=== PATIENT | female | born 1940 | race Caucasian/White ===

== ENCOUNTER 2016-07-20 05:49 | Emergency (ER) | payer MEDICARE, BC ==
--- NOTE | 2016-07-20 06:04 | EDM.PDOC ---
ED HPI GENERAL MEDICAL PROBLEM - General Chief Complaint: Abdominal Pain Stated Complaint: AMBULANCE Time Seen by Provider: 07/20/16 05:52 - History of Present Illness INITIAL COMMENTS - FREE TEXT/NARRATIVE: HISTORY AND PHYSICAL: History of present illness: The patient is a 75-year-old female who arrives EMS with her with a history of hypertension A. fib/A. flutter UTIs hypercholesterolemia parkinsonism and Lewy body dementia and her her she complained yesterday of some lower back pain which this morning and all day yesterday she is complaining of lower, pain and increased frequency of urination. The states she has not had any falls recently and has been up and ambulatory and the pain she complained of in her back initially was lower not flank pain. Now she complains to me just of lower abdominal discomfort. The is not a very good historian and the patient has dementia so the history is very limited. She's not had fevers cough or shortness of breath at home. She's not had vomiting. Review of systems: As per history of present illness and below otherwise all systems reviewed and negative. Past medical history: As per history of present illness and as reviewed below otherwise noncontributory. Surgical history: As per history of present illness and as reviewed below otherwise noncontributory. Social history: No reported history of drug or alcohol abuse. Family history: As per history of present illness and as reviewed below otherwise noncontributory. Physical exam: General: Well-developed well-nourished female referred to keep her eyes closed in the ED and exhibits poor effort on my exam. She seems uncomfortable with movements HEENT: Atraumatic, normocephalic, pupils reactive, negative for conjunctival pallor or scleral icterus, mucous membranes tacky, throat clear, neck supple, nontender, trachea midline. Lungs: Clear to auscultation but very poor effort diminished breath sounds at the bases, breath sounds equal bilaterally, chest nontender. Heart: S1S2, regular rate but irregular rhythm, negative for clicks, rubs, or JVD. Abdomen: Soft, nondistended, bowel sounds are hypoactive. There is mild tenderness used to in the abdomen but more in the lower part without rebound or guarding Negative for masses or hepatosplenomegaly. Negative for costovertebral tenderness. Pelvis: Stable nontender. Genitourinary: Deferred. Rectal: Deferred. Extremities: Atraumatic, negative for cords or calf pain. Neurovascular unremarkable. Neuro: Awake, alert, and at her baseline per her . Patient exhibits poor effort with the exam Motor and sensory unremarkable throughout. Exam nonfocal. Patient has intact dorsi and plantar flexion 5/5 bilaterally inclusive of the great toe. Exam is very challenging as the patient seems very low energy in the ER and her entire exam shows generalized weakness. Sensation is intact in the lower extremities. Back: There are no midline step-offs in his defects the thoracic or lumbar spine no soft tissue swelling abrasions or ecchymosis no discrete tenderness but the exam is challenging as the patient does not Corkery much by telling me what she is feeling. Diagnostics: EKG CBC CMP lipase UA urine culture CT scan of the abdomen and pelvis CT scan of the lumbar spine Therapeutics: IV fluids, patient received Toradol per EMS prior to arrival 0828: CT scan findings were discussed with the and family at bedside as well as with the neurosurgeon at [facility] in [place] Dr. Ramirez. Dr. Ramirez states at that he would treat this only with a back brace and pain management and she can followup with him in his office in several weeks for repeat evaluation. I discussed this conversation with the family at bedside. We will work on getting her a brace and I will discuss pain management with her . 0847: Patient's provider at [facility], Dr. Evans Jessica, was contacted and informed of today's events. He recommends giving a small amount of tramadol to try for pain management. According to the and he has an appointment scheduled already to see Dr. Murguia tomorrow for followup which I advised him to keep it. I will also give him information about Dr. Ramirez for followup in 2-3 weeks and we have arranged with [facility] to get a back brace for the patient. As the patient will likely not tolerate a Lillie brace we will do a Warm and Form Impression: T. 12 vertebral body fracture age indeterminate with pain, early UTI stable Definitive disposition and diagnosis as appropriate pending reevaluation and review of above. - Related Data Allergies Allergy/AdvReac Type Severity Reaction Status Date / Time acetaminophen Allergy Hallucinati Verified 07/20/16 06:39 [From Darvocet-N] ons etodolac [From Lodine] Allergy Other Verified 07/20/16 06:39 promethazine HCl Allergy Hallucinati Verified 07/20/16 06:39 [From Phenergan] ons propoxyphene napsylate Allergy Hallucinati Verified 07/20/16 06:39 [From Darvocet-N] ons sulfamethoxazole Allergy Other Verified 07/20/16 06:39 [From Bactrim] trimethoprim [From Bactrim] Allergy Other Verified 07/20/16 06:39 zolpidem [From Ambien] Allergy Other Verified 07/20/16 06:39 SMZ-TMP DS Tabs Allergy Rash Uncoded 01/13/16 08:20 Home Meds: Home Meds Aspirin [Ecotrin] 81 mg PO BEDTIME 11/06/14 [History] Captopril 50 mg PO BID 11/06/14 [History] Denosumab [Prolia] 1 injection INJECT ASDIRECTED 11/06/14 [History] Latanoprost [Xalatan 0.005% Ophth Soln] 2.5 ml EYEBOTH BEDTIME 11/06/14 [History ] Metoprolol Tartrate [Lopressor] 50 mg PO BID 11/06/14 [History] Multivitamin with Minerals [Multiple Vitamin] 1 tab PO DAILY 11/06/14 [History] Simvastatin [Zocor] 40 mg PO BEDTIME 11/06/14 [History] Cholecalciferol (Vitamin D3) [Vitamin D] 2,000 unit PO DAILY 07/20/16 [History] Past Medical History HEENT History: Reports: Cataract Cardiovascular History: Reports: Hypertension, Other (See Below) Other Cardiovascular History: REcent stress test, echocardiogram and good results from [facility]/Dr. Roseline Murguia stated Spouse Respiratory History: Reports: Other (See Below) Gastrointestinal History: Reports: Other (See Below) Other Gastrointestinal History: constipation occasionally [employer] History: Reports: Musculoskeletal History: Reports: None Neurological History: Reports: Other (See Below) Other Neuro History: No migraines for years Psychiatric History: Reports: Depression Endocrine/Metabolic History: Reports: None Hematologic History: Reports: None Immunologic History: Reports: None Oncologic (Cancer) History: Reports: None Dermatologic History: Reports: None - Infectious Disease History Infectious Disease History: Reports: Chicken Pox, Mumps - Past Surgical History Cardiovascular Surgical History: Reports: Other (See Below) GI Surgical History: Reports: Other (See Below) Social & Family History - Family History HEENT: Reports: None Cardiac: Reports: Heart Failure, Hypertension Respiratory: Reports: COPD Musculoskeletal: Reports: Arthritis - Tobacco Use Smoking Status *Q: Former Smoker Used Tobacco, but Quit: Yes Month Tobacco Last Used: Cannot recall Second Hand Smoke Exposure: No - Caffeine Use Caffeine Use: Reports: Coffee - Recreational Drug Use Recreational Drug Use: No Drug Use in Last 12 Months: No ED ROS GENERAL - Review of Systems Review Of Systems: ROS reveals no pertinent complaints other than HPI. ED EXAM, GENERAL - Physical Exam Exam: See Below (see dictation) Course - Vital Signs Last Recorded V/S: Last Vital Signs Temp 36.3 C 07/20/16 07:52 Pulse 78 07/20/16 08:48 Resp 15 07/20/16 08:48 BP 144/65 H 07/20/16 08:48 Pulse Ox 93 L 07/20/16 08:48 - Orders/Labs/Meds Orders: Active Orders 24 hr Category Date Time Status EKG Documentation Completion [RC] STAT Care 07/20/16 06:00 Active Abdomen Pelvis wo Cont [CT] Stat Exams 07/20/16 06:01 Taken Lumbar Spine wo Cont [CT] Stat Exams 07/20/16 07:29 Taken CULTURE URINE [RM] Stat Lab 07/20/16 06:20 Received Sodium Chloride 0.9% [Normal Saline] 500 ml Med 07/20/16 06:15 Active IV STAT Medication Orders Sodium Chloride (Normal Saline) 500 mls @ 999 mls/hr IV STAT CHIOMA Last Admin: 07/20/16 06:11 Dose: 999 mls/hr Labs: Laboratory Tests 07/20/16 07/20/16 07/20/16 Range/Units 06:20 06:28 06:28 WBC 9.21 (4.0-11.0) K/uL RBC 3.66 L (4.30-5.90) M/uL Hgb 11.8 L (12.0-16.0) g/dL Hct 36.4 (36.0-46.0) % MCV 99.5 H (80.0-98.0) fL MCH 32.2 H (27.0-32.0) pg MCHC 32.4 (31.0-37.0) g/dL RDW Std Deviation 46.6 (28.0-62.0) fl RDW Coeff of [place] 13 (11.0-15.0) % Plt Count 199 (150-400) K/uL MPV 10.80 (7.40-12.00) fL Neut % (Auto) 60.1 (48.0-80.0) % Lymph % (Auto) 28.1 (16.0-40.0) % [place] % (Auto) 10.1 (0.0-15.0) % Eos % (Auto) 1.3 (0.0-7.0) % Baso % (Auto) 0.4 (0.0-1.5) % Neut # (Auto) 5.5 (1.4-5.7) K/uL Lymph # (Auto) 2.6 H (0.6-2.4) K/uL [place] # (Auto) 0.9 H (0.0-0.8) K/uL Eos # (Auto) 0.1 (0.0-0.7) K/uL Baso # (Auto) 0.0 (0.0-0.1) K/uL Sodium 143 (136-146) mmol/L Potassium 3.6 (3.5-5.1) mmol/L Chloride 108 (98-110) mmol/L Carbon Dioxide 24 (21-31) mmol/L BUN 16 (6.0-23.0) mg/dL Creatinine 0.7 (0.6-1.5) mg/dL Est Cr Clr Drug Dosing 68.16 mL/min Estimated GFR (MDRD) > 60.0 ml/min Glucose 107 (60-110) mg/dL Calcium 9.2 (8.8-10.8) mg/dL Total Bilirubin 0.9 (0.1-1.5) mg/dL AST 21 (5-40) IU/L ALT 13 (8-54) IU/L Alkaline Phosphatase 55 (40-150) Total Protein 6.4 (6.0-8.0) g/dL Albumin 3.8 (3.4-4.8) g/dL Globulin 2.6 (2.0-3.5) g/dL Albumin/Globulin Ratio 1.5 (1.3-2.8) Lipase 20 (7-80) U/L Urine Color YELLOW Urine Appearance CLEAR Urine pH 6.5 (5.0-8.0) Ur Specific [place] 1.020 (1.001-1.035) Urine Protein NEGATIVE (NEGATIVE) mg/dL Urine Glucose (UA) NEGATIVE (NEGATIVE) mg/dL Urine Ketones TRACE H (NEGATIVE) mg/dL Urine Occult Blood NEGATIVE (NEGATIVE) Urine Nitrite NEGATIVE (NEGATIVE) Urine Bilirubin NEGATIVE (NEGATIVE) Urine Urobilinogen 0.2 (<2.0) EU/dL Ur Leukocyte Esterase NEGATIVE (NEGATIVE) Urine RBC 0-1 (0-2/HPF) Urine WBC 6-11 (0-5/HPF) Ur Epithelial Cells RARE (NONE-FEW) Urine Bacteria RARE (NEGATIVE) Meds: Medications Generic Name Dose Route Start Last Admin Trade Name Freq PRN Reason Stop Dose Admin Sodium Chloride 500 mls @ 999 mls/hr 07/20/16 06:15 07/20/16 06:11 Normal Saline IV 999 mls/hr STAT CHIOMA Administration Departure - Departure Time of Disposition: 08:58 Disposition: Home, Self-Care 01 Condition: fair Clinical Impression: UTI, Urinary tract infectious disease Thoracic spine fracture Qualifiers: Encounter type: initial encounter Thoracic vertebra fracture level: T12 Fracture type: closed Fracture morphology: unspecified fracture morphology Qualified Code(s): S22.089A - Unspecified fracture of T11-T12 vertebra, initial encounter for closed fracture - Discharge Information Forms: ED Department Discharge Additional Instructions: The following information is given to patients seen in the emergency department who are being discharged to home. This information is to outline your options for follow-up care. We provide all patients seen in our emergency department with a follow-up referral. The need for follow-up, as well as the timing and circumstances, are variable depending upon the specifics of your emergency department visit. If you don't have a primary care physician on staff, we will provide you with a referral. We always advise you to contact your personal physician following an emergency department visit to inform them of the circumstance of the visit and for follow-up with them and/or the need for any referrals to a consulting specialist. The emergency department will also refer you to a specialist when appropriate. This referral assures that you have the opportunity for followup care with a specialist. All of these measure are taken in an effort to provide you with optimal care, which includes your followup. Under all circumstances we always encourage you to contact your private physician who remains a resource for coordinating your care. When calling for followup care, please make the office aware that this follow-up is from your recent emergency room visit. If for any reason you are refused follow-up, please contact the [facility] emergency department at and ask to speak to the emergency department charge nurse. [address] [place] [address] Please keep your appointment with Dr. Johnson as scheduled and to use tramadol prescribed to you or [id number] Tylenol/ibuprofen for pain. Wear a brace at all times and return to ER as needed and as discussed. Also call and schedule followup with Dr. Ramirez at [facility] in [place] in 2-3 weeks. - My Orders Last 24 Hours: My Active Orders 07/20/16 06:00 EKG Documentation Completion [RC] STAT 07/20/16 06:01 Abdomen Pelvis wo Cont [CT] Stat 07/20/16 06:15 Sodium Chloride 0.9% [Normal Saline] 500 ml IV STAT 07/20/16 06:20 CULTURE URINE [RM] Stat 07/20/16 07:29 Lumbar Spine wo Cont [CT] Stat - Assessment/Plan Last 24 Hours: My Active Orders 07/20/16 06:00 EKG Documentation Completion [RC] STAT 07/20/16 06:01 Abdomen Pelvis wo Cont [CT] Stat 07/20/16 06:15 Sodium Chloride 0.9% [Normal Saline] 500 ml IV STAT 07/20/16 06:20 CULTURE URINE [RM] Stat 07/20/16 07:29 Lumbar Spine wo Cont [CT] Stat
[2016-07-20] MEDS ORDERED: Sodium Chloride 0.9% 500 ML IV SCH (06:15)
[2016-07-20 07:03] LABS: CHLORIDE,CL 108 mmol/L (98-110); SODIUM,NA 143 mmol/L (136-146)
[2016-07-20] MEDS ORDERED: traMADol 50 MG Tab PO ONE (09:27)
[2016-07-20 09:34] VITALS: BP 140/64
--- NOTE | 2016-07-20 10:52 | CT ---
EXAM DATE: 07/20/16 PATIENT'S AGE: 75 Patient: CODY MICHELLE Facility: [place], [place] Site . Site : 1940 Study: CT Spine Lumbar [id number]/16/2017 7:45:23 AM Ordering Physician: Mulu Carl Final Report: INDICATION: LBP HISTORY: Low back pain. COMPARISON: None. TECHNIQUE: CT of the lumbar spine without contrast. Coronal/sagittal reconstruction images. FINDINGS: Five lumbar type vertebral bodies are demonstrated on this exam. There is an age -indeterminate fracture involving T12. This should be correlated with physical exam findings. There is suspected involvement of the middle column on series 2, image 11. There is no significant spinal canal stenosis. No additional injury is identified. No lytic or blastic bone lesions are seen. There is no significant spinal canal or neural foraminal narrowing. The soft tissue windows demonstrate mild soft tissue stranding around the fracture, seen on series 3, image 10. There is no basilar pneumothorax. No hydronephrosis or perinephric edema. No abdominal aortic aneurysm. There is no retroperitoneal adenopathy. IMPRESSION: 1. Age-indeterminate fracture involving T12. Given adjacent fat stranding on soft tissue window settings, this may be acute. 2. There is a suspected involvement of the middle column. No significant spinal canal stenosis. This may represent a Burst fracture. Suggest correlation with mechanism of injury and physical exam findings. Neuro surgical consultation may be obtained depending on the mechanism of injury. 3. Vertebral body heights are otherwise maintained. 4. Report called to Dr. Hardwick, Emergency Department, 07/20/16, 0810 hours. Dictated by Romie Bell MD @ 07/20/2016 8:09:49 AM Dictated by: Romie Bell MD @ 07/20/2016 08:10:56 (Electronic Signature) Report Signed by Proxy. GISELLE
--- NOTE | 2016-07-20 10:52 | CT ---
EXAM DATE: 07/20/16 PATIENT'S AGE: 75 Patient: CODY MICHELLE Facility: [place], [place] Site . Site : 1940 Study: CT Abdomen/Pelvis [id number]/16/2017 7:11:35 AM Ordering Physician: Mulu Carl Final Report: INDICATION: abd pain, back pain x1 day HISTORY: Abdominal pain. COMPARISON: None. TECHNIQUE: CT of the abdomen and pelvis. No intravenous contrast. Coronal/sagittal reconstruction images. FINDINGS: Lung bases: Cardiomegaly. No significant pleural or pericardial effusion. Atelectasis at both lung bases. There is no acute airspace disease. There is no basilar pneumothorax. Abdomen/pelvis: No inflammatory changes about the gallbladder. No solid hepatic mass. Spleen size is normal. No adrenal mass. No pancreatic mass or pancreatic duct dilation. There is no obstructive urolith. Uterus appears surgically absent. Benign appearing calcifications in the pelvis. No pancreatic mass or pancreatic duct dilation. Spleen size is normal. There is no wall thickening within the small bowel or colon. No small bowel or colonic obstruction. No transition point. Moderate arterial calcifications in a normal caliber abdominal aorta. There is no abdominal or pelvic lymphadenopathy by size criteria. The bone windows demonstrate no lytic or blastic bone lesions. Osteophytic spurring is seen at the endplates of the thoracolumbar spine. There is an age- indeterminate compression fracture at T12, with between 25 and 50 percent vertebral body height loss. IMPRESSION: 1. Age-indeterminate compression fracture at T12. This is seen best on series 204, image 53, and on series 202, image 20. This may be correlated with physical exam findings and any history of recent injury. 2. Vertebral body heights are otherwise maintained. 3. No obstructive urolith, hydronephrosis, or perinephric fluid collection. 4. No abdominal/pelvic lymphadenopathy. Dictated by Romie Bell MD @ 07/20/2016 7:28:40 AM Dictated by: Romie Bell MD @ 07/20/2016 07:29:30 (Electronic Signature) Report Signed by Proxy. [facility]
== END 2016-07-20 09:43 | disposition home or self-care (01) ==
LOC: MW.ED 05:49
DX: S22.089A Unspecified fracture of T11-T12 vertebra, initial encounter for closed fracture (principal); N39.0 Urinary tract infection, site not specified; I10 Essential (primary) hypertension; I48.91 Unspecified atrial fibrillation; E78.00 Pure hypercholesterolemia, unspecified; F32.9 Major depressive disorder, single episode, unspecified; G31.83 Neurocognitive disorder with Lewy bodies; F02.80 Dementia in other diseases classified elsewhere, unspecified severity, without behavioral disturbance, psychotic disturbance, mood disturbance, and anxiety; Z87.891 Personal history of nicotine dependence; Z79.899 Other long term (current) drug therapy; Z88.1 Allergy status to other antibiotic agents; Z88.2 Allergy status to sulfonamides; Z88.6 Allergy status to analgesic agent; Z88.8 Allergy status to other drugs, medicaments and biological substances; X58.XXXA Exposure to other specified factors, initial encounter
CPT/HCPCS: 36415; 74176; 80053; 81001; 83690; 85025; 87086; 93005; 96360; 99285; A9270; J7040; 72131-26; 87088; 87186; 99284

== ENCOUNTER 2016-09-24 18:56 | Inpatient (IN) | payer MEDICARE, BC ==
--- NOTE | 2016-09-24 20:21 | PCM.HP ---
H&P History of Present Illness - General Admit Problem/Dx: Admission Diagnosis/Problem Admission Diagnosis/Problem Hip fracture requiring operative repair - History of Present Illness Initial Comments - Free Text/Narative: 76 yo female with pmh of Lewy Body dementia, parkinson's, and atrial fibrillation who resides at a memory care facility. She presented to [facility] for evaluation after fall. She has been having frequent falls. She was noted to have a mildly displaced subcapital fracture with in the right hip. CT scan of head showed no acute intracranial abnormality. She was given Rocephin for UTI. Mary has no orthopedic coverage this weekend and family request transfer to [place] as she has more family support here. She denies any pain. I was not able to get much history from patient and family is reportedly on the way here. - Related Data Allergies/Adverse Reactions: Allergies Allergy/AdvReac Type Severity Reaction Status Date / Time acetaminophen Allergy Hallucinati Verified 09/24/16 10:27 MDT [From Darvocet-N] ons etodolac [From Lodine] Allergy Other Verified 09/24/16 10:27 MDT promethazine HCl Allergy Hallucinati Verified 09/24/16 10:27 MDT [From Phenergan] ons propoxyphene napsylate Allergy Hallucinati Verified 09/24/16 10:27 MDT [From Darvocet-N] ons sulfamethoxazole Allergy Other Verified 09/24/16 10:27 MDT [From Bactrim] trimethoprim [From Bactrim] Allergy Other Verified 09/24/16 10:27 MDT zolpidem [From Ambien] Allergy Other Verified 09/24/16 10:27 MDT SMZ-TMP DS Tabs Allergy Rash Uncoded 01/13/16 08:20 Home Medications: Home Meds Aspirin [Ecotrin] 81 mg PO BEDTIME 11/06/14 [History] Captopril 50 mg PO BID 11/06/14 [History] Latanoprost [Xalatan 0.005% Ophth Soln] 1 drop EYEBOTH BEDTIME 11/06/14 [History ] Metoprolol Tartrate [Lopressor] 50 mg PO BID 11/06/14 [History] Simvastatin [Zocor] 40 mg PO BEDTIME 11/06/14 [History] Cholecalciferol (Vitamin D3) [Vitamin D] 2,000 unit PO DAILY 07/20/16 [History] Carbidopa/Levodopa [Sinemet 10-100 mg] 1 tab PO TID 09/24/16 [History] Multivit-Min/FA/Lycopene/Lut [Centrum Silver Tablet] 1 tab PO DAILY 09/24/16 [ History] traMADol HCl [Tramadol HCl] 1 tab PO QID PRN 09/24/16 [History] Past Medical History HEENT History: Reports: Cataract, Glaucoma Cardiovascular History: Reports: Cardiomyopathy, High Cholesterol, Hypertension Other Cardiovascular History: REcent stress test, echocardiogram and good results from [facility]/Dr. Roseline Murguia stated Spouse Respiratory History: Reports: Other (See Below) Gastrointestinal History: Reports: Diverticulosis Other Gastrointestinal History: constipation occasionally Genitourinary History: Reports: Urinary Incontinence, UTI, Recurrent PUMPMAN History: Reports: Musculoskeletal History: Reports: None Neurological History: Reports: Other (See Below) Other Neuro History: No migraines for years Psychiatric History: Reports: Dementia, Depression Endocrine/Metabolic History: Reports: Osteopenia Hematologic History: Reports: None Immunologic History: Reports: None Oncologic (Cancer) History: Reports: None Dermatologic History: Reports: None - Infectious Disease History Infectious Disease History: Reports: Chicken Pox, Mumps - Past Surgical History Head Surgeries/Procedures: Reports: None Cardiovascular Surgical History: Reports: Other (See Below) Social & Family History - Family History Family Medical History: Noncontributory HEENT: Reports: None Cardiac: Reports: Heart Failure, Hypertension Respiratory: Reports: COPD Musculoskeletal: Reports: Arthritis - Tobacco Use Smoking Status *Q: Unknown Ever Smoked Used Tobacco, but Quit: Yes Month Tobacco Last Used: Cannot recall Second Hand Smoke Exposure: No - Caffeine Use Caffeine Use: Reports: None - Recreational Drug Use Recreational Drug Use: No Drug Use in Last 12 Months: No H&P Review of Systems - Review of Systems: Review Of Systems: Unable To Obtain Exam - Exam Exam: See Below - Vital Signs Vital Signs: Last Vital Signs Temp 36.4 C 09/24/16 19:00 Pulse 86 09/24/16 19:00 Resp 16 09/24/16 19:00 BP 125/69 09/24/16 19:00 Pulse Ox Weight: 50.802 kg - Exam General: Cooperative. No: Mild Distress HEENT: Mucosa Moist & Compo, Nares Patent, Posterior Pharynx Clear Neck: Supple Lungs: Clear to Auscultation, Normal Respiratory Effort Cardiovascular: Regular Rate, Regular Rhythm GI/Abdominal Exam: Normal Bowel Sounds, Soft, Non-Tender Extremities: No Pedal Edema Skin: Warm, Dry, Intact *Q Meaningful Use (ADM) - VTE *Q VTE Criteria *Q: - Stroke *Q Stroke Criteria *Q: - AMI *Q AMI Criteria *Q: Problem List Initiated/Reviewed/Updated: Yes Orders Last 24hrs: Active Orders 24 hr Category Date Time Status Patient Status [ADT] Routine ADT 09/24/16 20:11 Ordered Antiembolic Devices [RC] PER UNIT ROUTINE Care 09/24/16 20:12 Ordered Notify Provider Consults [RC] ASDIRECTED Care 09/24/16 20:12 Ordered Oxygen Therapy [RC] PRN Care 09/24/16 20:11 Ordered VTE/DVT Education [RC] PER UNIT ROUTINE Care 09/24/16 20:11 Ordered Vital Signs [RC] Q4H Care 09/24/16 20:11 Ordered Consult to Physician [CONS] Routine Cons 09/24/16 20:11 Ordered Regular Diet [DIET] Diet 09/24/16 Breakfast Ordered BASIC METABOLIC PANEL,BMP [CHEM] AM Lab 09/25/16 05:11 Ordered CBC WITH AUTO DIFF [HEME] AM Lab 09/25/16 05:11 Ordered CULTURE URINE [RM] Stat Lab 09/24/16 20:11 Uncollected Aspirin [Halfprin] Med 09/24/16 21:00 Ordered 81 mg PO BEDTIME Captopril [Captopril] Med 09/24/16 21:00 Ordered 50 mg PO BID Carbidopa/Levodopa Med 09/24/16 22:00 Ordered 1 tab PO TID Cholecalciferol (Vitamin D3) [Vitamin D] Med 09/25/16 09:00 Ordered 2,000 unit PO DAILY Heparin Sodium Med 09/24/16 21:00 Ordered 5,000 units SUBCUT Q12HR Latanoprost [Xalatan 0.005% Ophth Soln] Med 09/24/16 21:00 Ordered 1 drop EYEBOTH BEDTIME Metoprolol Tartrate [Lopressor] Med 09/24/16 21:00 Ordered 50 mg PO BID Multivit-Min/FA/Lycopene/Lut [Centrum Silver Tablet] Med 09/25/16 09:00 Ordered 1 tab PO DAILY Simvastatin [Zocor] Med 09/24/16 21:00 Ordered 40 mg PO BEDTIME traMADol [Ultram] Med 09/24/16 20:10 Ordered 1 tab PO QID PRN Sequential Compression Device [OM.PC] Per Unit Routine Oth 09/24/16 20:12 Ordered Medication Orders Aspirin (Halfprin) 81 mg PO BEDTIME CHIOMA Latanoprost (Xalatan 0.005% Ophth Soln) ml EYEBOTH BEDTIME CHIOMA Metoprolol Tartrate (Lopressor) 50 mg PO BID CHIOMA Non-Formulary Medication (Captopril [Captopril]) 50 mg PO BID CHIOMA Non-Formulary Medication (Carbidopa/Levodopa) 1 tab PO TID CHIOMA Non-Formulary Medication (Cholecalciferol (Vitamin D3) [Vitamin D]) 2,000 unit PO DAILY CHIOMA Non-Formulary Medication (Multivit-Min/Fa/Lycopene/Lut [Centrum Silver Tablet]) 1 tab PO DAILY CHIOMA Simvastatin (Zocor) 40 mg PO BEDTIME CHIOMA Tramadol HCl (Ultram) mg PO QID PRN PRN Reason: Pain Assessment/Plan Comment:: 76 yo female admitted for right hip fracture. Dr. Garcia has been consulted. Will continue Rocephin for UTI. Will continue home medications of metoprolol and carbidopa/levadopa.
[2016-09-24] MEDS: Aspirin 81 MG Tab.EC PO SCH (20:52)
[2016-09-24] MEDS: Metoprolol Tartrate 50 MG Tab PO SCH (20:53)
[2016-09-24] MEDS: Heparin Sodium 5,000 Units/ML Vial SUBCUT SCH (20:57)
[2016-09-24] MEDS ORDERED: Simvastatin 40 MG Tab PO SCH (21:00)
--- NOTE | 2016-09-24 21:17 | PCM.CONS ---
H&P History of Present Illness - General Date of Service: 09/24/16 Admit Problem/Dx: Admission Diagnosis/Problem Admission Diagnosis/Problem Hip fracture requiring operative repair Source of Information: Old Records History Limitations: Reports: Altered Mental Status (h/o dementia) - History of Present Illness Initial Comments - Free Text/Narative: 76 y/o female with h/o dementia has had 3 falls in past 3 weeks. Over past few days, ambulation has decreased. Patient seemed to have some pain. Recently moved to [place] to correction care facility. Evaluated at ER in [place]. XR obtained shows displaced R femoral neck fracture. No ortho coverage, so transferred here as she has family in the area. Was also noted to have a UTI. Patient is alert, but is nonresponsive to questions and commands. Unsure of previous right hip pain. - Related Data Allergies/Adverse Reactions: Allergies Allergy/AdvReac Type Severity Reaction Status Date / Time acetaminophen Allergy Hallucinati Verified 09/24/16 10:27 MDT [From Darvocet-N] ons etodolac [From Lodine] Allergy Other Verified 09/24/16 10:27 MDT promethazine HCl Allergy Hallucinati Verified 09/24/16 10:27 MDT [From Phenergan] ons propoxyphene napsylate Allergy Hallucinati Verified 09/24/16 10:27 MDT [From Darvocet-N] ons sulfamethoxazole Allergy Other Verified 09/24/16 10:27 MDT [From Bactrim] trimethoprim [From Bactrim] Allergy Other Verified 09/24/16 10:27 MDT zolpidem [From Ambien] Allergy Other Verified 09/24/16 10:27 MDT SMZ-TMP DS Tabs Allergy Rash Uncoded 01/13/16 08:20 Home Medications: Home Meds Aspirin [Ecotrin] 81 mg PO BEDTIME 11/06/14 [History] Captopril 50 mg PO BID 11/06/14 [History] Latanoprost [Xalatan 0.005% Ophth Soln] 1 drop EYEBOTH BEDTIME 11/06/14 [History ] Metoprolol Tartrate [Lopressor] 50 mg PO BID 11/06/14 [History] Simvastatin [Zocor] 40 mg PO BEDTIME 11/06/14 [History] Cholecalciferol (Vitamin D3) [Vitamin D] 2,000 unit PO DAILY 07/20/16 [History] Carbidopa/Levodopa [Sinemet 10-100 mg] 1 tab PO TID 09/24/16 [History] Multivit-Min/FA/Lycopene/Lut [Centrum Silver Tablet] 1 tab PO DAILY 09/24/16 [ History] traMADol HCl [Tramadol HCl] 1 tab PO QID PRN 09/24/16 [History] Past Medical History HEENT History: Reports: Cataract, Glaucoma Cardiovascular History: Reports: Cardiomyopathy, High Cholesterol, Hypertension Other Cardiovascular History: REcent stress test, echocardiogram and good results from [facility]/Dr. Roseline Murguia stated Spouse Respiratory History: Reports: Other (See Below) Gastrointestinal History: Reports: Diverticulosis Other Gastrointestinal History: constipation occasionally Genitourinary History: Reports: Urinary Incontinence, UTI, Recurrent PSYCHIATRIC REGISTERED NURSE History: Reports: Musculoskeletal History: Reports: None Neurological History: Reports: Other (See Below) Other Neuro History: No migraines for years Psychiatric History: Reports: Dementia, Depression Endocrine/Metabolic History: Reports: Osteopenia Hematologic History: Reports: None Immunologic History: Reports: None Oncologic (Cancer) History: Reports: None Dermatologic History: Reports: None - Infectious Disease History Infectious Disease History: Reports: Chicken Pox, Mumps - Past Surgical History Head Surgeries/Procedures: Reports: None Cardiovascular Surgical History: Reports: Other (See Below) Social & Family History - Family History Family Medical History: Noncontributory HEENT: Reports: None Cardiac: Reports: Heart Failure, Hypertension Respiratory: Reports: COPD Musculoskeletal: Reports: Arthritis - Tobacco Use Smoking Status *Q: Unknown Ever Smoked Used Tobacco, but Quit: Yes Month Tobacco Last Used: Cannot recall Second Hand Smoke Exposure: No - Caffeine Use Caffeine Use: Reports: None - Recreational Drug Use Recreational Drug Use: No Drug Use in Last 12 Months: No H&P Review of Systems - Review of Systems: Review Of Systems: Unable To Obtain (unresponsive to questioning secondary to dementia) Exam - Exam Exam: See Below - Vital Signs Vital Signs: Last Vital Signs Temp 97.5 F 09/24/16 19:00 Pulse 78 09/24/16 20:53 Resp 16 09/24/16 19:00 BP 117/62 09/24/16 20:53 Pulse Ox Weight: 50.802 kg - Exam General: Alert HEENT: Conjunctiva Clear, Nares Patent, Pupils Equal Neck: Supple, Trachea Midline, 2 Lungs: Normal Respiratory Effort Cardiovascular: Irregular Rhythm GI/Abdominal Exam: Soft (Female) Exam: Deferred Rectal (Female) Exam: Deferred Neuro Extensive - Mental Status: Alert, Disorientation to Person, Disorientation to Place, Disorientation to Time Psychiatric: Alert Physical Exam Comments:: Exam of bilateral lower extremities shows RLE to be shortened and ER. I am able to move her hip with minimal discomfort. She answers "no" to all of my questions. Moves foot/ankle spontaneously, but not to command. DP 2+. - Patient Data Imaging Impressions Last 24 hrs: XR pelvis and R hip show displaced R femoral neck fracture. Consult PN Assessment/Plan Procedures: Procedures ASSAY OF LIPASE (07/20/16) ASSAY OF MAGNESIUM (03/19/15) ASSAY OF TROPONIN QUANT (03/19/15) ASSAY THYROID STIM HORMONE (03/19/15) CHEST X-RAY 1 VIEW FRONTAL (03/19/15) COMPLETE CBC W/AUTO DIFF WBC (07/20/16) COMPREHEN METABOLIC PANEL (07/20/16) CT ABD & PELVIS W/O CONTRAST (07/20/16) CT HEAD/BRAIN W/O DYE (03/19/15) DIAGNOSTIC COLONOSCOPY (11/07/14) ELECTROCARDIOGRAM TRACING (07/20/16) EMERGENCY DEPT VISIT (07/20/16) EMERGENCY DEPT VISIT (01/13/16) EMERGENCY DEPT VISIT (03/19/15) HYDRATE IV INFUSION ADD-ON (03/19/15) HYDRATION IV INFUSION INIT (07/20/16) METABOLIC PANEL TOTAL CA (03/19/15) OFFICE/OUTPATIENT VISIT EST (10/30/14) ROUTINE VENIPUNCTURE (07/20/16) THER/PROPH/DIAG INJ IV PUSH (03/19/15) TTE W/DOPPLER COMPLETE (03/19/15) URINALYSIS AUTO W/SCOPE (07/20/16) URINE CULTURE/COLONY COUNT (07/20/16) (1) Hip fracture, right SNOMED Code(s): 299663609 Code(s): S72.001A - FRACTURE OF UNSP PART OF NECK OF RIGHT FEMUR, INIT Current Visit: No Qualifiers: Encounter type: initial encounter Fracture type: closed Qualified Code(s) : S72.001A - Fracture of unspecified part of neck of right femur, initial encounter for closed fracture Problem List Initiated/Reviewed/Updated: Yes Plan: 1. recommend surgical treatment: R hip hemiarthroplasty 2. will need preop medical evaluation 3. plan to do tomorrow--Dr. Felix will be the composite bond technician physician and will be her surgeon. I have discussed case with him and he agrees to assume care in the morning. 4. will need to obtain consent from POA
[2016-09-24] MEDS ORDERED: Latanoprost 0.005% Ophth Soln 2.5 ML Bottle ONE (21:20)
[2016-09-24] MEDS ORDERED: Morphine 2 MG/ML Syringe IVPUSH PRN (21:21)
[2016-09-24] MEDS: Latanoprost 0.005% Ophth Soln 2.5 ML Bottle EYEBOTH SCH (21:25)
[2016-09-25 06:30] LABS: CHLORIDE,CL 105 mmol/L (98-110); SODIUM,NA 142 mmol/L (136-146)
[2016-09-25] MEDS: CARBIDOPA PO SCH ×2 (06:47→15:17)
[2016-09-25] MEDS: LEVODOPA PO SCH ×2 (06:47→15:17)
--- NOTE | 2016-09-25 08:26 | PCM.PREANE ---
<Maira Knox - Last Filed: 09/25/16 08:19> Preanesthetic Assessment - Anesthesia/Transfusion/Family Hx Anesthesia History: Unknown Other Type of Anesthesia Reaction Comment: "1 colonoscopy veins collapsed and she did not get the meds/painful" Transfusion History: Unknown - Physical Assessment Pulse: 78 O2 Sat by Pulse Oximetry: 93 Respiratory Rate: 18 Blood Pressure: 117/62 Vital Signs: Last Vital Signs Temp 96.2 F 09/25/16 08:00 Pulse 78 09/25/16 08:35 Resp 18 09/25/16 08:35 BP 117/62 09/25/16 08:35 Pulse Ox 93 L 09/25/16 08:35 Height: 5 ft 8.11 in Weight: 112 lb - Lab Values: Laboratory Last Values WBC 11.58 K/uL (4.0-11.0) H 09/25/16 05:47 RBC 4.21 M/uL (4.30-5.90) L 09/25/16 05:47 Hgb 12.9 g/dL (12.0-16.0) 09/25/16 05:47 Hct 39.1 % (36.0-46.0) 09/25/16 05:47 MCV 92.9 fL (80.0-98.0) 09/25/16 05:47 MCH 30.6 pg (27.0-32.0) 09/25/16 05:47 MCHC 33.0 g/dL (31.0-37.0) 09/25/16 05:47 RDW Std Deviation 47.2 fl (28.0-62.0) 09/25/16 05:47 RDW Coeff of Deneen 14 % (11.0-15.0) 09/25/16 05:47 Plt Count 279 K/uL (150-400) 09/25/16 05:47 MPV 11.40 fL (7.40-12.00) 09/25/16 05:47 Neut % (Auto) 63.0 % (48.0-80.0) 09/25/16 05:47 Lymph % (Auto) 27.7 % (16.0-40.0) 09/25/16 05:47 Kimball % (Auto) 7.5 % (0.0-15.0) 09/25/16 05:47 Eos % (Auto) 1.5 % (0.0-7.0) 09/25/16 05:47 Baso % (Auto) 0.3 % (0.0-1.5) 09/25/16 05:47 Neut # (Auto) 7.3 K/uL (1.4-5.7) H 09/25/16 05:47 Lymph # (Auto) 3.2 K/uL (0.6-2.4) H 09/25/16 05:47 Kimball # (Auto) 0.9 K/uL (0.0-0.8) H 09/25/16 05:47 Eos # (Auto) 0.2 K/uL (0.0-0.7) 09/25/16 05:47 Baso # (Auto) 0.0 K/uL (0.0-0.1) 09/25/16 05:47 Nucleated RBC % 0.0 /100WBC 09/25/16 05:47 Nucleated RBCs # 0 K/uL 09/25/16 05:47 Sodium 142 mmol/L (136-146) 09/25/16 05:47 Potassium 3.6 mmol/L (3.5-5.1) 09/25/16 05:47 Chloride 105 mmol/L (98-110) 09/25/16 05:47 Carbon Dioxide 27 mmol/L (21-31) 09/25/16 05:47 BUN 11 mg/dL (6.0-23.0) 09/25/16 05:47 Creatinine 0.6 mg/dL (0.6-1.5) 09/25/16 05:47 Est Cr Clr Drug Dosing 61.97 mL/min 09/25/16 05:47 Estimated GFR (MDRD) > 60.0 ml/min 09/25/16 05:47 Glucose 88 mg/dL (60-110) 09/25/16 05:47 Calcium 8.4 mg/dL (8.8-10.8) L 09/25/16 05:47 Blood Type A POSITIVE 09/25/16 05:47 Antibody Screen NEGATIVE 09/25/16 05:47 - Allergies Allergies/Adverse Reactions: Allergies Allergy/AdvReac Type Severity Reaction Status Date / Time acetaminophen Allergy Hallucinati Verified 09/24/16 10:27 MDT [From Darvocet-N] ons etodolac [From Lodine] Allergy Other Verified 09/24/16 10:27 MDT promethazine HCl Allergy Hallucinati Verified 09/24/16 10:27 MDT [From Phenergan] ons propoxyphene napsylate Allergy Hallucinati Verified 09/24/16 10:27 MDT [From Darvocet-N] ons sulfamethoxazole Allergy Other Verified 09/24/16 10:27 MDT [From Bactrim] trimethoprim [From Bactrim] Allergy Other Verified 09/24/16 10:27 MDT zolpidem [From Ambien] Allergy Other Verified 09/24/16 10:27 MDT SMZ-TMP DS Tabs Allergy Rash Uncoded 01/13/16 08:20 PreAnesthesia Questionnaire HEENT History: Reports: Cataract, Glaucoma Cardiovascular History: Reports: Cardiomyopathy, High Cholesterol, Hypertension Other Cardiovascular History: REcent stress test, echocardiogram and good results from [facility]/Dr. Roseline Murguia stated Spouse Respiratory History: Reports: Other (See Below) Gastrointestinal History: Reports: Diverticulosis Other Gastrointestinal History: constipation occasionally Genitourinary History: Reports: Urinary Incontinence, UTI, Recurrent HR ADVISOR History: Reports: Musculoskeletal History: Reports: None Neurological History: Reports: Other (See Below) Other Neuro History: No migraines for years Psychiatric History: Reports: Dementia, Depression Endocrine/Metabolic History: Reports: Osteopenia Hematologic History: Reports: None Immunologic History: Reports: None Oncologic (Cancer) History: Reports: None Dermatologic History: Reports: None - Infectious Disease History Infectious Disease History: Reports: Chicken Pox, Mumps - Past Surgical History Head Surgeries/Procedures: Reports: None Cardiovascular Surgical History: Reports: Other (See Below) - SUBSTANCE USE Smoking Status *Q: Unknown Ever Smoked Second Hand Smoke Exposure: No Recreational Drug Use History: No - HOME MEDS Home Medications: Home Meds Aspirin [Ecotrin] 81 mg PO BEDTIME 11/06/14 [History] Captopril 50 mg PO BID 11/06/14 [History] Latanoprost [Xalatan 0.005% Ophth Soln] 1 drop EYEBOTH BEDTIME 11/06/14 [History ] Metoprolol Tartrate [Lopressor] 50 mg PO BID 11/06/14 [History] Simvastatin [Zocor] 40 mg PO BEDTIME 11/06/14 [History] Cholecalciferol (Vitamin D3) [Vitamin D] 2,000 unit PO DAILY 07/20/16 [History] Carbidopa/Levodopa [Sinemet 10-100 mg] 1 tab PO TID 09/24/16 [History] Multivit-Min/FA/Lycopene/Lut [Centrum Silver Tablet] 1 tab PO DAILY 09/24/16 [ History] traMADol HCl [Tramadol HCl] 1 tab PO QID PRN 09/24/16 [History] - CURRENT (IN HOUSE) MEDS Current Meds: Current Medications Aspirin (Halfprin) 81 mg PO BEDTIME [facility] Last Admin: 09/24/16 20:52 Dose: 81 mg Captopril (Capoten) 50 mg PO BID [facility] Last Admin: 09/25/16 09:03 Dose: Not Given Cholecalciferol (Vitamin D3) 2,000 units PO DAILY [facility] Last Admin: 09/25/16 09:04 Dose: Not Given Heparin Sodium (Porcine) (Heparin Sodium) 5,000 units SUBCUT Q12HR [facility] Last Admin: 09/24/16 20:57 Dose: 5,000 units Ceftriaxone Sodium/Dextrose 1 (gm/ Premix) 50 mls @ 100 mls/hr IV Q24H [facility] Last Admin: 09/25/16 09:02 Dose: 100 mls/hr Latanoprost (Xalatan 0.005% Ophth Soln) 0 ml EYEBOTH BEDTIME [facility] Last Admin: 09/24/16 21:25 Dose: 1 drop Metoprolol Tartrate (Lopressor) 50 mg PO BID [facility] Last Admin: 09/25/16 09:03 Dose: Not Given Morphine Sulfate (Morphine) 1 mg IVPUSH Q3H PRN PRN Reason: Pain Multivitamins/Minerals (Thera M Plus) 1 tab PO DAILY [facility] Last Admin: 09/25/16 09:03 Dose: Not Given Carbidopa/Levodopa (10-100 Pt Own) 1 tab PO TID [facility] Last Admin: 09/25/16 06:47 Dose: Not Given Simvastatin (Zocor) 40 mg PO BEDTIME [facility] Last Admin: 09/24/16 20:53 Dose: 40 mg Tramadol HCl (Ultram) 50 mg PO QID PRN PRN Reason: Pain Discontinued Medications Bupivacaine HCl (Marcaine 0.5%) Confirm Administered Dose 30 ml .ROUTE .STK-MED ONE Stop: 09/25/16 09:16 Etomidate (Amidate) Confirm Administered Dose 40 mg IVPUSH .STK-MED ONE Stop: 09/25/16 08:44 Fentanyl (Sublimaze) Confirm Administered Dose 250 mcg .ROUTE .STK-MED ONE Stop: 09/25/16 08:44 Ceftriaxone Sodium 1,000 mg/ (Sodium Chloride) 50 mls @ 200 mls/hr IV Q24H [facility] Cefazolin Sodium/Dextrose 1 gm (/ Premix) 50 mls @ 100 mls/hr IV ONETIME ONE Stop: 09/25/16 09:29 Cefazolin Sodium/Dextrose (Ancef) Confirm Administered Dose 50 mls @ as directed .ROUTE .STK-MED ONE Stop: 09/25/16 08:51 Ceftriaxone Sodium/Dextrose 1 (gm/ Premix) 50 mls @ 200 mls/hr IV Q24H [facility] Latanoprost (Xalatan 0.005% Ophth Soln) 2.5 ml .ROUTE .STK-MED ONE Stop: 09/24/16 21:21 Lidocaine (Xylocaine-Mpf 2%) Confirm Administered Dose 5 ml .ROUTE .STK-MED ONE Stop: 09/25/16 08:44 Ondansetron HCl (Zofran) Confirm Administered Dose 4 mg .ROUTE .STK-MED ONE Stop: 09/25/16 08:44 Propofol (Diprivan 20 Ml) Confirm Administered Dose 200 mg .ROUTE .STK-MED ONE Stop: 09/25/16 08:44 Rocuronium [place] (Zemuron) Confirm Administered Dose 100 mg .ROUTE .STK-MED ONE Stop: 09/25/16 08:44 Succinylcholine Chloride (Succinylcholine In Ns Pf) Confirm Administered Dose 200 mg .ROUTE .STK-MED ONE Stop: 09/25/16 08:44 Tranexamic Acid (Cyklokapron) Confirm Administered Dose 2,000 mg .ROUTE .STK- MED ONE Stop: 09/25/16 08:50 <Deandre Rueda - Last Filed: 09/25/16 09:38> Preanesthetic Assessment - Procedure Proposed Procedure: right hip hemiarthroplasty - Anesthesia/Transfusion/Family Hx Family History of Anesthesia Reaction: No Intubation History: Unknown - Review of Systems General: Other (Alzheimers) Pulmonary: No Symptoms Cardiovascular: Palpitations (hx of Atrial Fibrilleation ( on metoprolol - BID)) , Other (known abnaormal EKG) Gastrointestinal: No Symptoms Neurological: Other (see above; periods of lucidity (conversational this AM)) Other: Reports: Anxiety (emotional lability) - Physical Assessment NPO Status Date: 09/24/16 NPO Status Time: 23:00 ASA Class: 3E Mental Status: Alert & Oriented x3 (oriented to self/situation/but lapses into random past thoughts) Airway Class: Mallampati = 2 Dentition: Reports: Normal Dentition Thyro-Mental Finger Breadths: 3 Mouth Opening Finger Breadths: 3 ROM/Head Extension: Limited/Partial (tension to leftlateral lean of head; able to get to midline with assist) Lungs: Clear to Auscultation, Normal Respiratory Effort Cardiovascular: No Murmurs, Irregular Rhythm - Blood Blood Available: Yes Product(s) Available: PRBC (T and S) - Anesthesia Plan Free Text/Narrative:: General anesthetic; related risks and benefits to who stated his daoughter would understand if he had questions. Beta Truman: Metoprolol (last PO dose yesterday) - Acknowledgements Anesthesia Type Planned: General Anesthesia Pt an Appropriate Candidate for the Planned Anesthesia: Yes Alternatives and Risks of Anesthesia Discussed w Pt/Guardian: Yes Pt/Guardian Understands and Agrees with Anesthesia Plan: Yes
[2016-09-25] MEDS ORDERED: cefTRIAXone 1,000 MG VIAL IVPUSH SCH (08:30)
[2016-09-25] MEDS ORDERED: Rocuronium 10 MG/ML 10 ML Syringe ONE (08:43)
[2016-09-25] MEDS ORDERED: Etomidate 2 MG/ML 20 ML SDV IVPUSH ONE (08:43)
[2016-09-25] MEDS ORDERED: Ondansetron 4 MG/2 ML SDV ONE (08:43)
[2016-09-25] MEDS ORDERED: Succinylcholine/Normal Saline 200 MG/10 ML Syringe ONE (08:43)
[2016-09-25] MEDS ORDERED: Propofol 200 MG/20 ML SDV ONE (08:43)
[2016-09-25] MEDS ORDERED: Lidocaine 2% 5 ML SDV ONE (08:43)
[2016-09-25] MEDS ORDERED: fentaNYL 250 MCG/5 ML SDV ONE (08:43)
--- NOTE | 2016-09-25 08:46 | PCM.SN ---
- Free Text/Narrative Note: S: patient admitted last night with hip fracture. nonverbal. Nurses stated comfortable overnight with no issues. O AF vital signs stable, irreg rate/rhythm right leg shortened and externally rotated, no swelling distally, 2+ DP wiggles toes x-ray: displaced subcapital femoral neck fracture, good cortices distally A/P: Right displaced femoral neck fx - medicine has cleared - plan right hip hemiarthroplasty today, cemented or uncemented - the risks, benefits, complications, and alternatives to operative and non- operative treatment including but not limited to radha-prosthetic fx, leg length discrepancy, infection, dislocation, DVT, PE, [place], and were discussed with the and he wishes to proceed. - I quoted a 30 day mortality of 10-20% - will place on aspirin post-operatively for DVT prophylaxis. Discussed with IM
[2016-09-25] MEDS ORDERED: ceFAZolin 1 GM in Premix Bag 1 BAG IV ONE (09:00)
[2016-09-25] MEDS ORDERED: cefTRIAXone 1,000 MG in Sodium Chloride 0.9% 50 ML IV SCH (09:00)
[2016-09-25] MEDS ORDERED: cefTRIAXone 1 GM in Premix Bag 1 BAG IV SCH (09:00)
[2016-09-25] MEDS: cefTRIAXone 1 GM in Premix Bag 1 BAG IV SCH (09:02)
[2016-09-25] MEDS: Metoprolol Tartrate 50 MG Tab PO SCH ×2 (09:03→20:55)
[2016-09-25] MEDS: Multivitamins with Iron/Calcium/Folic Acid/Minerals Tab PO SCH (09:03)
[2016-09-25] MEDS: Cholecalciferol (Vitamin D3) 1,000 Unit Tab PO SCH (09:04)
[2016-09-25] MEDS ORDERED: Bupivacaine 0.5% 30 ML SDV ONE (09:15)
[2016-09-25] MEDS ORDERED: Phenylephrine 1% 10 MG/ML SDV ONE (09:30)
[2016-09-25] MEDS ORDERED: fentaNYL 100 MCG/2 ML SDV IVPUSH PRN (09:53)
--- NOTE | 2016-09-25 10:47 | PCM.OPNOTE ---
- General Post-Op/Procedure Note Date of Surgery/Procedure: 09/25/16 Operative Procedure(s): open treatment of right hip femoral neck fracture with hemiarthroplasty Findings: displaced femoral neck fx Pre Op Diagnosis: right hip displaced femoral neck fx Post-Op Diagnosis: same Anesthesia Technique: General ET Tube Primary Surgeon: Rony Mcgarry Mai Pathology: femoral head EBL in mLs: 200 Complications: none Condition: Stable Free Text/Narrative:: Intake & Output 09/24/16 09/25/16 09/25/16 22:59 06:59 14:59 Intake Total 0 Output Total 250 Balance -250
[2016-09-25] MEDS ORDERED: ceFAZolin 1 GM in Premix Bag 1 BAG IV SCH (11:00)
--- NOTE | 2016-09-25 11:22 | PCM.POSTAN ---
POST ANESTHESIA ASSESSMENT - MENTAL STATUS Mental Status: Other (hx of dementia, pt not verbal at this point which is baseline) - RESPIRATORY Respiratory Status: respiratory rate WNL, Airway Patent, O2 Saturation Stable, Supplemental Oxygen (O2 via nasal canula) - CARDIOVASCULAR CV Status: Pulse Rate WNL, Other (afib which is baseline) - GASTROINTESTINAL GI Status: No Symptoms - POST OP HYDRATION Hydration Status: Adequate & Stable - OBSERVATIONS Free Text/Narrative:: back to [facility]
--- NOTE | 2016-09-25 15:35 | OR ---
SURGEON: Rony Felix MD DATE OF PROCEDURE: 09/24/2016 SUBJECTIVE: The patient is a 76-year-old female with Alzheimer's, who presents with a displaced right hip femoral neck fracture. She wished to undergo operative fixation. PREOPERATIVE DIAGNOSIS: Right hip displaced femoral neck fracture. POSTOPERATIVE DIAGNOSIS: Right hip displaced femoral neck fracture. OPERATION PERFORMED: Open treatment of right hip displaced femoral neck fracture with hemiarthroplasty. ANESTHESIA: General. ESTIMATED BLOOD LOSS: 200 mL. SPECIMENS: Femoral head. COMPLICATIONS: None. IMPLANTS: Severy Secur-Fit Max 132 angle neck stem, size 10 press-fit; 28 mm +2.5 offset L-Fit head with bipolar universal head 49 mm outer diameter, 28 mm inner diameter. INDICATIONS: The patient is a 76-year-old female with Alzheimer's who has fallen multiple times over the last several weeks, presents with a displaced femoral neck fracture. Discussion with the , he wished to undergo surgical fixation understanding the risks, benefits, potential complications of the procedure including infection, neurovascular injury, continued pain, DVT, PE, stroke, [place], , leg-length discrepancy, fracture, dislocation, deep infection, and he wished to proceed. We informed him of approximately a 30-day mortality of 20%. PROCEDURE IN DETAIL: The patient was seen in preop area. Operative extremity was marked for the patient. She was transferred to the operating room and placed supine on the operating room table. General anesthesia was induced. Endotracheal tube was placed. She received preop antibiotics with Ancef and also 2 g of TXA. She was placed in the left lateral decubitus position padding all bony prominences on the pegboard with an axillary roll and the right lower extremity was prepped and draped in a sterile fashion using alcohol followed by ChloraPrep and Ioban covering. A formal time-out was taken, identifying the correct procedure and extremity. A 12 cm incision was started centered over the greater trochanter was made. Dissection was carried down to subcutaneous tissues. Hemostasis was obtained. The IT band was split and retractor was placed. Leg was internally rotated and then the external rotators and capsule was taken off as a sleeve up to the superior acetabulum and tagged with three #2 fiber wires for later repair. The head was easily removed. There was no blood indicative of a more than several day old fracture. The head measured 49 mm. There was some labral tear, which was debrided anteriorly. The ligamentum teres loose pieces were removed and also all the bone fragments anterior to the capsule were completely removed and the acetabulum was then irrigated. The neck was then cut freshening up at the superior aspect of the neck where the fracture was based on preoperative templating and then the leg was kept in 90 degrees internal rotation and the box osteotome was utilized and then the hip was reamed by hand while lateralizing up to size 10 and then it was sequentially broached from size 5 up to size 10 slightly increasing the [place] version. The version was placed at approximately 35-40 degrees. This had excellent fit and it was about 2 to 3 mm below the neck cut and so the final size 10 Secur-Fit Max hip stem was impacted into place. This had excellent press-fit. It was then trialed with +2.5 neck length with a 49 mm head bipolar and the hip was reduced. There was no dislocation at 90 degrees of flexion, 70 degrees internal rotation, and complete adduction. It was stable range of motion. The leg lengths were equal and there was extension to about 5 degrees. Hip was then dislocated and the final bipolar head with 28 mm +2.5 neck length and 49 mm bipolar component was impacted. Hip was then relocated and two drill holes were placed into the greater trochanter and one limb of each of the three take sutures passed through each side and it was tied down with the hip in neutral. The fascia was then closed with #1 Vicryl. The fat layer was closed with #1 Vicryl. The subcutaneous tissues were closed with 2.0 Strata fix and the skin was closed with jamarcus. Xeroform and sterile dressing applied. The patient was placed in an abduction pillow. She was extubated in the operating room and transferred to the recovery room in stable condition. Sponge and needle counts were correct at the end of the case. There were no immediate complications. PLAN: The patient will follow up with postop rehab protocol with weightbearing and taking aspirin for DVT prophylaxis. LORENA CERVANTES /[id number]
[2016-09-25] MEDS: ceFAZolin 1 GM in Premix Bag 1 BAG IV SCH (16:15)
[2016-09-25] MEDS: traMADol 50 MG Tab PO PRN (17:02)
--- NOTE | 2016-09-25 19:48 | PCM48HPAN ---
Post Anesthesia Note - EVALUATION WITHIN 48HRS OF ANESTHETIC Vital Signs in Normal Range: Yes Patient Participated in Evaluation: Yes Respiratory Function Stable: Yes Airway Patent: Yes Cardiovascular Function Stable: Yes Hydration Status Stable: Yes Pain Control Satisfactory: Yes Nausea and Vomiting Control Satisfactory: Yes Mental Status Recovered: Yes
[2016-09-25] MEDS: Aspirin 81 MG Tab.EC PO SCH (20:48)
[2016-09-25] MEDS: Docusate Sodium 100 MG Cap PO SCH (20:49)
[2016-09-25] MEDS: Latanoprost 0.005% Ophth Soln 2.5 ML Bottle EYEBOTH SCH (20:56)
[2016-09-25] MEDS: Carbidopa/Levodopa 25-100 MG Tab PO SCH (21:02)
[2016-09-26] MEDS: ceFAZolin 1 GM in Premix Bag 1 BAG IV SCH ×2 (01:02→08:23)
[2016-09-26] MEDS: Carbidopa/Levodopa 25-100 MG Tab PO SCH ×3 (05:35→21:22)
[2016-09-26] MEDS: traMADol 50 MG Tab PO PRN ×2 (05:35→15:19)
--- NOTE | 2016-09-26 06:57 | PCM.SN ---
- Free Text/Narrative Note: S: non verbal, nurse states did well yesterday with no issues. O: afebrile vital signs stable dressing clean/dry/intact right hip. no swelling distally. palpable DP pulse HGB 12.7 A/P: POD # 1 right hip hemiarthroplasty for femoral neck fracture - full weight bearing, posterior hip precautions - PT - hgb is stable - to SNF beginning of week when able
[2016-09-26] MEDS: Docusate Sodium 100 MG Cap PO SCH ×2 (08:48→21:23)
[2016-09-26] MEDS: Cholecalciferol (Vitamin D3) 1,000 Unit Tab PO SCH (08:48)
[2016-09-26] MEDS: Aspirin 325 MG Tab.EC PO SCH (08:48)
[2016-09-26] MEDS: Multivitamins with Iron/Calcium/Folic Acid/Minerals Tab PO SCH (08:48)
[2016-09-26] MEDS: Metoprolol Tartrate 50 MG Tab PO SCH ×2 (09:04→21:22)
[2016-09-26] MEDS: cefTRIAXone 1 GM in Premix Bag 1 BAG IV SCH (09:14)
[2016-09-26] MEDS: Heparin Sodium 5,000 Units/ML Vial SUBCUT SCH ×2 (12:09→21:23)
--- NOTE | 2016-09-26 12:18 | PCM.PN ---
- General Info Date of Service: 09/25/16 Admission Dx/Problem (Free Text): Admission Diagnosis/Problem Admission Diagnosis/Problem Hip fracture requiring operative repair Functional Status: Reports: Pain Controlled - Review of Systems Systems Review Comment:: The patient has Lewy body dementia and not alert and oriented. Review of systems not obtainable. - Patient Data Vitals - most recent: Last Vital Signs Temp 36.7 C 09/26/16 08:00 Pulse 103 H 09/26/16 09:04 Resp 16 09/26/16 08:00 BP 158/68 H 09/26/16 09:04 Pulse Ox 93 L 09/26/16 08:00 Weight - most recent: 50.802 kg I&O - last 24 hours: Intake & Output 09/25/16 09/26/16 09/26/16 22:59 06:59 14:59 Intake Total 0 150 Output Total 200 250 Balance -200 -100 Lab Results last 24 hrs: Laboratory Results - last 24 hr 09/26/16 09/26/16 Range/Units 05:50 11:10 WBC 17.67 H 18.43 H (4.0-11.0) K/uL RBC 4.07 L 4.07 L (4.30-5.90) M/uL Hgb 12.6 12.3 (12.0-16.0) g/dL Hct 38.6 38.5 (36.0-46.0) % MCV 94.8 94.6 (80.0-98.0) fL MCH 31.0 30.2 (27.0-32.0) pg MCHC 32.6 31.9 (31.0-37.0) g/dL RDW Std Deviation 47.8 47.8 (28.0-62.0) fl RDW Coeff of Deneen 14 14 (11.0-15.0) % Plt Count 260 265 (150-400) K/uL MPV 10.80 10.90 (7.40-12.00) fL Neut % (Auto) 80.9 H (48.0-80.0) % Lymph % (Auto) 12.9 L (16.0-40.0) % [place] % (Auto) 5.8 (0.0-15.0) % Eos % (Auto) 0.3 (0.0-7.0) % Baso % (Auto) 0.1 (0.0-1.5) % Neut # (Auto) 14.3 H (1.4-5.7) K/uL Lymph # (Auto) 2.3 (0.6-2.4) K/uL [place] # (Auto) 1.0 H (0.0-0.8) K/uL Eos # (Auto) 0.1 (0.0-0.7) K/uL Baso # (Auto) 0.0 (0.0-0.1) K/uL Nucleated RBC % 0.0 0.0 /100WBC Nucleated RBCs # 0 0 K/uL Rodney Results last 24 hrs: Microbiology 09/24/16 23:10 Urine Culture - Final Urine, Alarcon Cath (Indwelling) MIXED HIRA 1,000-10,000 CFU/ML Med Orders - Current: Current Medications Aspirin (Ecotrin) 325 mg PO DAILY [facility] Last Admin: 09/26/16 08:48 Dose: 325 mg Captopril (Capoten) 50 mg PO BID [facility] Last Admin: 09/26/16 09:03 Dose: 50 mg Carbidopa/Levodopa (Sinemet 25-100 Mg) 1 tab PO TID [facility] Last Admin: 09/26/16 05:35 Dose: 1 tab Cholecalciferol (Vitamin D3) 2,000 units PO DAILY [facility] Last Admin: 09/26/16 08:48 Dose: 2,000 units Docusate Sodium (Colace) 100 mg PO BID [facility] Last Admin: 09/26/16 08:48 Dose: 100 mg Fentanyl (Sublimaze) 50 mcg IVPUSH SEECOMMENT PRN PRN Reason: Pain (moderate 4-6) Last Admin: 09/25/16 11:32 Dose: 50 mcg Heparin Sodium (Porcine) (Heparin Sodium) 5,000 units SUBCUT Q12HR [facility] Last Admin: 09/26/16 12:09 Dose: 5,000 units Ceftriaxone Sodium/Dextrose 1 (gm/ Premix) 50 mls @ 100 mls/hr IV Q24H [facility] Last Admin: 09/26/16 09:14 Dose: 100 mls/hr Latanoprost (Xalatan 0.005% Ophth Soln) 0 ml EYEBOTH BEDTIME [facility] Last Admin: 09/25/16 20:56 Dose: 1 drop Metoprolol Tartrate (Lopressor) 50 mg PO BID [facility] Last Admin: 09/26/16 09:04 Dose: 50 mg Morphine Sulfate (Morphine) 1 mg IVPUSH Q3H PRN PRN Reason: Pain Last Admin: 09/25/16 21:17 Dose: 1 mg Multivitamins/Minerals (Thera M Plus) 1 tab PO DAILY [facility] Last Admin: 09/26/16 08:48 Dose: 1 tab Tramadol HCl (Ultram) 50 mg PO QID PRN PRN Reason: Pain Last Admin: 09/26/16 05:35 Dose: 50 mg Discontinued Medications Aspirin (Halfprin) 81 mg PO BEDTIME [facility] Last Admin: 09/25/16 20:48 Dose: 81 mg Bupivacaine HCl (Marcaine 0.5%) Confirm Administered Dose 30 ml .ROUTE .STK-MED ONE Stop: 09/25/16 09:16 Etomidate (Amidate) Confirm Administered Dose 40 mg IVPUSH .STK-MED ONE Stop: 09/25/16 08:44 Fentanyl (Sublimaze) Confirm Administered Dose 250 mcg .ROUTE .STK-MED ONE Stop: 09/25/16 08:44 Ceftriaxone Sodium 1,000 mg/ (Sodium Chloride) 50 mls @ 200 mls/hr IV Q24H [facility] Cefazolin Sodium/Dextrose 1 gm (/ Premix) 50 mls @ 100 mls/hr IV ONETIME ONE Stop: 09/25/16 09:29 Cefazolin Sodium/Dextrose (Ancef) Confirm Administered Dose 50 mls @ as directed .ROUTE .STK-MED ONE Stop: 09/25/16 08:51 Ceftriaxone Sodium/Dextrose 1 (gm/ Premix) 50 mls @ 200 mls/hr IV Q24H [facility] Cefazolin Sodium/Dextrose 1 gm (/ Premix) 50 mls @ 100 mls/hr IV Q8H [facility] Stop: 09/26/16 03:29 Last Admin: 09/25/16 13:28 Dose: Not Given Cefazolin Sodium/Dextrose 1 gm (/ Premix) 50 mls @ 100 mls/hr IV Q8H [facility] Stop: 09/26/16 09:29 Last Admin: 09/26/16 08:23 Dose: 100 mls/hr Latanoprost (Xalatan 0.005% [facility] Soln) 2.5 ml .ROUTE .STK-MED ONE Stop: 09/24/16 21:21 Lidocaine (Xylocaine-Mpf 2%) Confirm Administered Dose 5 ml .ROUTE .STK-MED ONE Stop: 09/25/16 08:44 Carbidopa/Levodopa (10-100 Pt Own) 1 tab PO TID [facility] Last Admin: 09/25/16 15:17 Dose: Not Given Ondansetron HCl (Zofran) Confirm Administered Dose 4 mg .ROUTE .STK-MED ONE Stop: 09/25/16 08:44 Phenylephrine HCl (Toro-Synephrine) Confirm Administered Dose 10 mg .ROUTE .STK- MED ONE Stop: 09/25/16 09:31 Propofol (Diprivan 20 Ml) Confirm Administered Dose 200 mg .ROUTE .STK-MED ONE Stop: 09/25/16 08:44 Rocuronium [place] (Zemuron) Confirm Administered Dose 100 mg .ROUTE .STK-MED ONE Stop: 09/25/16 08:44 Simvastatin (Zocor) 40 mg PO BEDTIME [facility] Last Admin: 09/24/16 20:53 Dose: 40 mg Succinylcholine Chloride (Succinylcholine In Ns Pf) Confirm Administered Dose 200 mg .ROUTE .STK-MED ONE Stop: 09/25/16 08:44 Tranexamic Acid (Cyklokapron) Confirm Administered Dose 2,000 mg .ROUTE .STK- MED ONE Stop: 09/25/16 08:50 - Exam Quality Assessment: No: supplemental oxygen General: no acute distress. No: alert, oriented HEENT: Pupils equal, Pupils reactive Neck: supple Lungs: Clear to Auscultation Cardiovascular: Regular Rate, Regular Rhythm GI/Abdominal Exam: Normal Bowel Sounds, Soft Back Exam: Decreased Range of Motion Extremities: Pedal Edema Skin: warm, dry Wound/Incisions: dressing dry and intact - Problem List & Annotations (1) Hip fracture, right SNOMED Code(s): 618679265 Code(s): S72.001A - FRACTURE OF UNSP PART OF NECK OF RIGHT FEMUR, INIT Status: Acute Current Visit: No Qualifiers: Encounter type: initial encounter Fracture type: closed Qualified Code(s) : S72.001A - Fracture of unspecified part of neck of right femur, initial encounter for closed fracture (2) Lewy body dementia without behavioral disturbance SNOMED Code(s): 394694155 Code(s): G31.83 - DEMENTIA WITH LEWY BODIES; F02.80 - DEMENTIA IN OTH DISEASES CLASSD ELSWHR W/O BEHAVRL DISTURB Status: Chronic Priority: Medium Current Visit: Yes - Problem List Review Problem List Initiated/Reviewed/Updated: Yes - My Orders Last 24 Hours: My Active Orders 09/25/16 16:25 Code Status [Resuscitation Status] Routine 09/25/16 22:00 Carbidopa/Levodopa [Sinemet 25-100 mg] 1 tab PO TID 09/26/16 11:16 Communication Order [RC] ROUTINE - Plan Plan:: 76 yo female admitted for right hip fracture. Dr. Garcia has been consulted. Will continue Rocephin for UTI. Will continue home medications of metoprolol and carbidopa/levadopa. September 25, 2016: Patient is a 76-year-old lady was seen postoperatively for right hemiarthroplasty. Patient does not exhibit any signs of distress or discomfort. The patient is minimally responsive verbally and she does not alert and oriented to place or time. The patient however, does deny any pain. I have spoken with the patient's family. I've explained that the patient might likely be appropriate for senior care [facility] for physical rehabilitation. The patient is currently living in an assisted living facility in [place]. Primary issue with the patient his pain control as well as physical therapy as per orthopedic surgeon. The patient does not appear to be in any pain at the present time and appears to be resting comfortably. The patient will be started on her home medications.
--- NOTE | 2016-09-26 12:25 | PCM.PN ---
- General Info Date of Service: 09/26/16 Admission Dx/Problem (Free Text): Admission Diagnosis/Problem Admission Diagnosis/Problem Hip fracture requiring operative repair Functional Status: Reports: Pain Controlled - Review of Systems Systems Review Comment:: Dementia - Patient Data Vitals - most recent: Last Vital Signs Temp 36.7 C 09/26/16 08:00 Pulse 103 H 09/26/16 09:04 Resp 16 09/26/16 08:00 BP 158/68 H 09/26/16 09:04 Pulse Ox 93 L 09/26/16 08:00 Weight - most recent: 50.802 kg I&O - last 24 hours: Intake & Output 09/25/16 09/26/16 09/26/16 22:59 06:59 14:59 Intake Total 0 150 Output Total 200 250 Balance -200 -100 Lab Results last 24 hrs: Laboratory Results - last 24 hr 09/26/16 09/26/16 Range/Units 05:50 11:10 WBC 17.67 H 18.43 H (4.0-11.0) K/uL RBC 4.07 L 4.07 L (4.30-5.90) M/uL Hgb 12.6 12.3 (12.0-16.0) g/dL Hct 38.6 38.5 (36.0-46.0) % MCV 94.8 94.6 (80.0-98.0) fL MCH 31.0 30.2 (27.0-32.0) pg MCHC 32.6 31.9 (31.0-37.0) g/dL RDW Std Deviation 47.8 47.8 (28.0-62.0) fl RDW Coeff of Deneen 14 14 (11.0-15.0) % Plt Count 260 265 (150-400) K/uL MPV 10.80 10.90 (7.40-12.00) fL Neut % (Auto) 80.9 H (48.0-80.0) % Lymph % (Auto) 12.9 L (16.0-40.0) % [place] % (Auto) 5.8 (0.0-15.0) % Eos % (Auto) 0.3 (0.0-7.0) % Baso % (Auto) 0.1 (0.0-1.5) % Neut # (Auto) 14.3 H (1.4-5.7) K/uL Lymph # (Auto) 2.3 (0.6-2.4) K/uL [place] # (Auto) 1.0 H (0.0-0.8) K/uL Eos # (Auto) 0.1 (0.0-0.7) K/uL Baso # (Auto) 0.0 (0.0-0.1) K/uL Nucleated RBC % 0.0 0.0 /100WBC Nucleated RBCs # 0 0 K/uL Rodney Results last 24 hrs: Microbiology 09/24/16 23:10 Urine Culture - Final Urine, Alarcon Cath ([place]) MIXED ELZBIETA 1,000-10,000 CFU/ML Med Orders - Current: Current Medications Aspirin (Ecotrin) 325 mg PO DAILY [facility] Last Admin: 09/26/16 08:48 Dose: 325 mg Captopril (Capoten) 50 mg PO BID [facility] Last Admin: 09/26/16 09:03 Dose: 50 mg Carbidopa/Levodopa (Sinemet 25-100 Mg) 1 tab PO TID [facility] Last Admin: 09/26/16 05:35 Dose: 1 tab Cholecalciferol (Vitamin D3) 2,000 units PO DAILY [facility] Last Admin: 09/26/16 08:48 Dose: 2,000 units Docusate Sodium (Colace) 100 mg PO BID [facility] Last Admin: 09/26/16 08:48 Dose: 100 mg Fentanyl (Sublimaze) 50 mcg IVPUSH SEECOMMENT PRN PRN Reason: Pain (moderate 4-6) Last Admin: 09/25/16 11:32 Dose: 50 mcg Heparin Sodium (Porcine) (Heparin Sodium) 5,000 units SUBCUT Q12HR [facility] Last Admin: 09/26/16 12:09 Dose: 5,000 units Ceftriaxone Sodium/Dextrose 1 (gm/ Premix) 50 mls @ 100 mls/hr IV Q24H [facility] Last Admin: 09/26/16 09:14 Dose: 100 mls/hr Latanoprost (Xalatan 0.005% Ophth Soln) 0 ml EYEBOTH BEDTIME [facility] Last Admin: 09/25/16 20:56 Dose: 1 drop Metoprolol Tartrate (Lopressor) 50 mg PO BID [facility] Last Admin: 09/26/16 09:04 Dose: 50 mg Morphine Sulfate (Morphine) 1 mg IVPUSH Q3H PRN PRN Reason: Pain Last Admin: 09/25/16 21:17 Dose: 1 mg Multivitamins/Minerals (Thera M Plus) 1 tab PO DAILY [facility] Last Admin: 09/26/16 08:48 Dose: 1 tab Tramadol HCl (Ultram) 50 mg PO QID PRN PRN Reason: Pain Last Admin: 09/26/16 05:35 Dose: 50 mg Discontinued Medications Aspirin (Halfprin) 81 mg PO BEDTIME [facility] Last Admin: 09/25/16 20:48 Dose: 81 mg Bupivacaine HCl (Marcaine 0.5%) Confirm Administered Dose 30 ml .ROUTE .STK-MED ONE Stop: 09/25/16 09:16 Etomidate (Amidate) Confirm Administered Dose 40 mg IVPUSH .STK-MED ONE Stop: 09/25/16 08:44 Fentanyl (Sublimaze) Confirm Administered Dose 250 mcg .ROUTE .STK-MED ONE Stop: 09/25/16 08:44 Ceftriaxone Sodium 1,000 mg/ (Sodium Chloride) 50 mls @ 200 mls/hr IV Q24H [facility] Cefazolin Sodium/Dextrose 1 gm (/ Premix) 50 mls @ 100 mls/hr IV ONETIME ONE Stop: 09/25/16 09:29 Cefazolin Sodium/Dextrose (Ancef) Confirm Administered Dose 50 mls @ as directed .ROUTE .STK-MED ONE Stop: 09/25/16 08:51 Ceftriaxone Sodium/Dextrose 1 (gm/ Premix) 50 mls @ 200 mls/hr IV Q24H [facility] Cefazolin Sodium/Dextrose 1 gm (/ Premix) 50 mls @ 100 mls/hr IV Q8H [facility] Stop: 09/26/16 03:29 Last Admin: 09/25/16 13:28 Dose: Not Given Cefazolin Sodium/Dextrose 1 gm (/ Premix) 50 mls @ 100 mls/hr IV Q8H [facility] Stop: 09/26/16 09:29 Last Admin: 09/26/16 08:23 Dose: 100 mls/hr Latanoprost (Xalatan 0.005% Ophth Soln) 2.5 ml .ROUTE .STK-MED ONE Stop: 09/24/16 21:21 Lidocaine (Xylocaine-Mpf 2%) Confirm Administered Dose 5 ml .ROUTE .STK-MED ONE Stop: 09/25/16 08:44 Carbidopa/Levodopa (10-100 Pt Own) 1 tab PO TID [facility] Last Admin: 09/25/16 15:17 Dose: Not Given Ondansetron HCl (Zofran) Confirm Administered Dose 4 mg .ROUTE .STK-MED ONE Stop: 09/25/16 08:44 Phenylephrine HCl (Toro-Synephrine) Confirm Administered Dose 10 mg .ROUTE .STK- MED ONE Stop: 09/25/16 09:31 Propofol (Diprivan 20 Ml) Confirm Administered Dose 200 mg .ROUTE .STK-MED ONE Stop: 09/25/16 08:44 Rocuronium [place] (Zemuron) Confirm Administered Dose 100 mg .ROUTE .STK-MED ONE Stop: 09/25/16 08:44 Simvastatin (Zocor) 40 mg PO BEDTIME [facility] Last Admin: 09/24/16 20:53 Dose: 40 mg Succinylcholine Chloride (Succinylcholine In Ns Pf) Confirm Administered Dose 200 mg .ROUTE .STK-MED ONE Stop: 09/25/16 08:44 Tranexamic Acid (Cyklokapron) Confirm Administered Dose 2,000 mg .ROUTE .STK- MED ONE Stop: 09/25/16 08:50 - Exam Quality Assessment: urine catheter. No: supplemental oxygen General: no acute distress. No: alert, oriented HEENT: Pupils equal, Mucous membr. moist/pink Neck: supple, trachea midline Lungs: Clear to Auscultation Cardiovascular: Regular Rate Back Exam: Decreased Range of Motion, Other (The cervical spine with head slumped) Skin: warm Wound/Incisions: dressing dry and intact Neurological: No: normal gait Psy/Mental Status: No: alert - Problem List & Annotations (1) Hip fracture, right SNOMED Code(s): 970174938 Code(s): S72.001A - FRACTURE OF UNSP PART OF NECK OF RIGHT FEMUR, INIT Status: Acute Current Visit: No Qualifiers: Encounter type: initial encounter Fracture type: closed Qualified Code(s) : S72.001A - Fracture of unspecified part of neck of right femur, initial encounter for closed fracture (2) Lewy body dementia without behavioral disturbance SNOMED Code(s): 505517300 Code(s): G31.83 - DEMENTIA WITH LEWY BODIES; F02.80 - DEMENTIA IN OTH DISEASES CLASSD ELSWHR W/O BEHAVRL DISTURB Status: Chronic Priority: Medium Current Visit: Yes (3) Urinary tract infection SNOMED Code(s): 67401349 Code(s): N39.0 - URINARY TRACT INFECTION, SITE NOT SPECIFIED Status: Acute Priority: Medium Current Visit: Yes Qualifiers: Urinary tract infection type: acute cystitis - Problem List Review Problem List Initiated/Reviewed/Updated: Yes - My Orders Last 24 Hours: My Active Orders 09/25/16 16:25 Code Status [Resuscitation Status] Routine 09/25/16 22:00 Carbidopa/Levodopa [Sinemet 25-100 mg] 1 tab PO TID 09/26/16 11:16 Communication Order [RC] ROUTINE - Plan Plan:: 76 yo female admitted for right hip fracture. Dr. Garcia has been consulted. Will continue Rocephin for UTI. Will continue home medications of metoprolol and carbidopa/levadopa. September 25, 2016: Patient is a 76-year-old lady was seen postoperatively for right hemiarthroplasty. Patient does not exhibit any signs of distress or discomfort. The patient is minimally responsive verbally and she does not alert and oriented to place or time. The patient however, does deny any pain. I have spoken with the patient's family. I've explained that the patient might likely be appropriate for [facility] [place] for physical rehabilitation. The patient is currently living in an assisted living facility in [place]. Primary issue with the patient his pain control as well as physical therapy as per orthopedic surgeon. The patient does not appear to be in any pain at the present time and appears to be resting comfortably. The patient will be started on her home medications. September 26, 2016: The patient is a 76-year-old lady who is postop day #1 for right hip hemiarthroplasty. This was completed by orthopedic secondary to a femoral neck fracture. The patient herself is not alert or oriented but she does not appear to be any pain. The patient does have been weakness of her cervical muscles likely secondary to the dementia and the patient does have a soft collar to help keep her head up. I've asked that the physical therapy address this issue as well. The patient's daughter reports that because of the head slumped the patient is not able to participate in any activities at her home. The patient also had been on medication for urinary tract infection however, culture results that showed 10,000 colonies of mixed elzbieta. Antibiotics were discontinued. Patient still continues to have leukocytosis and I suspect this is secondary to the surgery yesterday. This will be monitored very closely and if the patient still has continued rise in her white blood cell count consider replacement antibiotics for her. Patient also will be ambulated as per orthopedics and physical therapy. She currently has a Alarcon catheter and this will be discontinued when appropriate. Patient's treatment plan will be adjusted as conditions and information indicates.
[2016-09-26] MEDS: Latanoprost 0.005% Ophth Soln 2.5 ML Bottle EYEBOTH SCH (22:00)
[2016-09-27] MEDS: Carbidopa/Levodopa 25-100 MG Tab PO SCH ×3 (06:03→21:43)
[2016-09-27] MEDS: Cholecalciferol (Vitamin D3) 1,000 Unit Tab PO SCH (08:00)
[2016-09-27] MEDS: cefTRIAXone 1 GM in Premix Bag 1 BAG IV SCH (08:13)
[2016-09-27] MEDS: Heparin Sodium 5,000 Units/ML Vial SUBCUT SCH ×2 (08:18→21:40)
[2016-09-27] MEDS: Aspirin 325 MG Tab.EC PO SCH (08:19)
[2016-09-27] MEDS: Docusate Sodium 100 MG Cap PO SCH ×2 (08:19→21:45)
[2016-09-27] MEDS: Multivitamins with Iron/Calcium/Folic Acid/Minerals Tab PO SCH (08:19)
[2016-09-27] MEDS: Metoprolol Tartrate 50 MG Tab PO SCH ×2 (09:00→21:46)
--- NOTE | 2016-09-27 09:27 | PCM.PN ---
- General Info Date of Service: 09/27/16 Admission Dx/Problem (Free Text): Admission Diagnosis/Problem Admission Diagnosis/Problem Hip fracture requiring operative repair Subjective Update: Patient alert this am, denies any pain, chest pain, SOB, or abdominal pain. Otherwise not very conversational. Answers yes and no then mumbles. Functional Status: Reports: Pain Controlled, Tolerating Diet (nurses report not eating or drinking much since surgery) - Patient Data Vitals - most recent: Last Vital Signs Temp 96.7 F 09/27/16 07:18 Pulse 80 09/27/16 07:18 Resp 16 09/27/16 07:18 BP 106/56 L 09/27/16 07:18 Pulse Ox 94 L 09/27/16 04:00 Weight - most recent: 50.802 kg I&O - last 24 hours: Intake & Output 09/26/16 09/27/16 09/27/16 22:59 06:59 14:59 Intake Total 380 200 Output Total 150 120 Balance 230 80 Lab Results last 24 hrs: Laboratory Results - last 24 hr 09/26/16 09/27/16 Range/Units 11:10 09:13 WBC 18.43 H 14.81 H (4.0-11.0) K/uL RBC 4.07 L 3.87 L (4.30-5.90) M/uL Hgb 12.3 11.8 L (12.0-16.0) g/dL Hct 38.5 36.6 (36.0-46.0) % MCV 94.6 94.6 (80.0-98.0) fL MCH 30.2 30.5 (27.0-32.0) pg MCHC 31.9 32.2 (31.0-37.0) g/dL RDW Std Deviation 47.8 48.7 (28.0-62.0) fl RDW Coeff of Deneen 14 14 (11.0-15.0) % Plt Count 265 275 (150-400) K/uL MPV 10.90 11.00 (7.40-12.00) fL Neut % (Auto) 74.7 (48.0-80.0) % Lymph % (Auto) 17.4 (16.0-40.0) % Mcdonald % (Auto) 7.6 (0.0-15.0) % Eos % (Auto) 0.2 (0.0-7.0) % Baso % (Auto) 0.1 (0.0-1.5) % Neut # (Auto) 11.1 H (1.4-5.7) K/uL Lymph # (Auto) 2.6 H (0.6-2.4) K/uL Mcdonald # (Auto) 1.1 H (0.0-0.8) K/uL Eos # (Auto) 0.0 (0.0-0.7) K/uL Baso # (Auto) 0.0 (0.0-0.1) K/uL Nucleated RBC % 0.0 0.2 /100WBC Nucleated RBCs # 0 0 K/uL Rodney Results last 24 hrs: Microbiology 09/24/16 23:10 Urine Culture - Final Urine, Alarcon Cath (Indwelling) MIXED HIRA 1,000-10,000 CFU/ML Med Orders - Current: Current Medications Aspirin (Ecotrin) 325 mg PO DAILY [facility] Last Admin: 09/27/16 08:19 Dose: 325 mg Captopril (Capoten) 50 mg PO BID [facility] Last Admin: 09/26/16 21:23 Dose: 50 mg Carbidopa/Levodopa (Sinemet 25-100 Mg) 1 tab PO TID [facility] Last Admin: 09/27/16 06:03 Dose: 1 tab Cholecalciferol (Vitamin D3) 2,000 units PO DAILY [facility] Last Admin: 09/27/16 08:00 Dose: 2,000 units Docusate Sodium (Colace) 100 mg PO BID [facility] Last Admin: 09/27/16 08:19 Dose: 100 mg Fentanyl (Sublimaze) 50 mcg IVPUSH SEECOMMENT PRN PRN Reason: Pain (moderate 4-6) Last Admin: 09/25/16 11:32 Dose: 50 mcg Heparin Sodium (Porcine) (Heparin Sodium) 5,000 units SUBCUT Q12HR [facility] Last Admin: 09/27/16 08:18 Dose: 5,000 units Ceftriaxone Sodium/Dextrose 1 (gm/ Premix) 50 mls @ 100 mls/hr IV Q24H [facility] Last Admin: 09/27/16 08:13 Dose: 100 mls/hr Sodium Chloride (Normal Saline) 1,000 mls @ 100 mls/hr IV ASDIRECTED [facility] Latanoprost (Xalatan 0.005% Ophth Soln) 0 ml EYEBOTH BEDTIME [facility] Last Admin: 09/26/16 22:00 Dose: 1 drop Metoprolol Tartrate (Lopressor) 50 mg PO BID [facility] Last Admin: 09/26/16 21:22 Dose: 50 mg Morphine Sulfate (Morphine) 1 mg IVPUSH Q3H PRN PRN Reason: Pain Last Admin: 09/25/16 21:17 Dose: 1 mg Multivitamins/Minerals (Thera M Plus) 1 tab PO DAILY [facility] Last Admin: 09/27/16 08:19 Dose: 1 tab Tramadol HCl (Ultram) 50 mg PO QID PRN PRN Reason: Pain Last Admin: 09/26/16 15:19 Dose: 50 mg Discontinued Medications Aspirin (Halfprin) 81 mg PO BEDTIME [facility] Last Admin: 09/25/16 20:48 Dose: 81 mg Bupivacaine HCl (Marcaine 0.5%) Confirm Administered Dose 30 ml .ROUTE .STK-MED ONE Stop: 09/25/16 09:16 Etomidate (Amidate) Confirm Administered Dose 40 mg IVPUSH .STK-MED ONE Stop: 09/25/16 08:44 Fentanyl (Sublimaze) Confirm Administered Dose 250 mcg .ROUTE .STK-MED ONE Stop: 09/25/16 08:44 Ceftriaxone Sodium 1,000 mg/ (Sodium Chloride) 50 mls @ 200 mls/hr IV Q24H [facility] Cefazolin Sodium/Dextrose 1 gm (/ Premix) 50 mls @ 100 mls/hr IV ONETIME ONE Stop: 09/25/16 09:29 Cefazolin Sodium/Dextrose (Ancef) Confirm Administered Dose 50 mls @ as directed .ROUTE .STK-MED ONE Stop: 09/25/16 08:51 Ceftriaxone Sodium/Dextrose 1 (gm/ Premix) 50 mls @ 200 mls/hr IV Q24H [facility] Cefazolin Sodium/Dextrose 1 gm (/ Premix) 50 mls @ 100 mls/hr IV Q8H [facility] Stop: 09/26/16 03:29 Last Admin: 09/25/16 13:28 Dose: Not Given Cefazolin Sodium/Dextrose 1 gm (/ Premix) 50 mls @ 100 mls/hr IV Q8H [facility] Stop: 09/26/16 09:29 Last Admin: 09/26/16 08:23 Dose: 100 mls/hr Latanoprost (Xalatan 0.005% Ophth Soln) 2.5 ml .ROUTE .STK-MED ONE Stop: 09/24/16 21:21 Lidocaine (Xylocaine-Mpf 2%) Confirm Administered Dose 5 ml .ROUTE .STK-MED ONE Stop: 09/25/16 08:44 Carbidopa/Levodopa (10-100 Pt Own) 1 tab PO TID [facility] Last Admin: 09/25/16 15:17 Dose: Not Given Ondansetron HCl (Zofran) Confirm Administered Dose 4 mg .ROUTE .STK-MED ONE Stop: 09/25/16 08:44 Phenylephrine HCl (Toro-Synephrine) Confirm Administered Dose 10 mg .ROUTE .STK- MED ONE Stop: 09/25/16 09:31 Propofol (Diprivan 20 Ml) Confirm Administered Dose 200 mg .ROUTE .STK-MED ONE Stop: 09/25/16 08:44 Rocuronium [place] (Zemuron) Confirm Administered Dose 100 mg .ROUTE .STK-MED ONE Stop: 09/25/16 08:44 Simvastatin (Zocor) 40 mg PO BEDTIME [facility] Last Admin: 09/24/16 20:53 Dose: 40 mg Succinylcholine Chloride (Succinylcholine In Ns Pf) Confirm Administered Dose 200 mg .ROUTE .STK-MED ONE Stop: 09/25/16 08:44 Tranexamic Acid (Cyklokapron) Confirm Administered Dose 2,000 mg .ROUTE .STK- MED ONE Stop: 09/25/16 08:50 - Exam General: alert, cooperative, no acute distress. No: oriented HEENT: Pupils equal Neck: supple, no JVD Lungs: Clear to Auscultation, Normal Respiratory Effort Cardiovascular: Regular Rate, No Murmurs, Irregular Rhythm GI/Abdominal Exam: Normal Bowel Sounds, Soft, Non-Tender, No Organomegaly, No Distention, No Abnormal Bruit, No Mass, Pelvis Stable Extremities: Normal Inspection, Non-Tender, No Pedal Edema, Normal Capillary Refill Wound/Incisions: dressing dry and intact (R hip). No: erythema Psy/Mental Status: alert, normal affect, normal mood - Problem List & Annotations (1) Urinary tract infection SNOMED Code(s): 53433037 Code(s): N39.0 - URINARY TRACT INFECTION, SITE NOT SPECIFIED Status: Acute Priority: Medium Current Visit: Yes Qualifiers: Urinary tract infection type: acute cystitis (2) Lewy body dementia without behavioral disturbance SNOMED Code(s): 825712905 Code(s): G31.83 - DEMENTIA WITH LEWY BODIES; F02.80 - DEMENTIA IN OTH DISEASES CLASSD ELSWHR W/O BEHAVRL DISTURB Status: Chronic Priority: Medium Current Visit: Yes (3) Hip fracture, right SNOMED Code(s): 211729453 Code(s): S72.001A - FRACTURE OF UNSP PART OF NECK OF RIGHT FEMUR, INIT Status: Chronic Current Visit: No Qualifiers: Encounter type: initial encounter Fracture type: closed Qualified Code(s) : S72.001A - Fracture of unspecified part of neck of right femur, initial encounter for closed fracture (4) Afib SNOMED Code(s): 22031754 Code(s): I48.91 - UNSPECIFIED ATRIAL FIBRILLATION Status: Chronic Current Visit: Yes Qualifiers: Atrial fibrillation type: unspecified Qualified Code(s): I48.91 - Unspecified atrial fibrillation - Problem List Review Problem List Initiated/Reviewed/Updated: Yes - My Orders Last 24 Hours: My Active Orders 09/27/16 09:13 BMP [BASIC METABOLIC PANEL,BMP] [CHEM] Routine 09/27/16 09:23 UA W/MICROSCOPIC [URIN] Routine 09/27/16 09:24 Chest 1V Frontal [CR] Routine 09/27/16 09:30 Sodium Chloride 0.9% @ 100 MLS/HR(1,000ml) Sodium Chloride 0.9% [Normal Saline] 1,000 ml IV ASDIRECTED - Plan Plan:: 76 yo female admitted for right hip fracture. 1. R hip fracture: Dr. Felix consulted. PT consulted for ambulation. Alarcon remains in. Will monitor I/O today and plan for removal in am. ASA on discharge for VTE per recommendations 2. UTI: Continue Rocephin. Urine culture from [place] grew out Gemelia species , sensitive to Rocephin. Leukocytosis improving. Will monitor. Afbrile. 3. Low urine output: UA pending. Will add NS 100 x1 L today, monitor I/O closely. Nursing reports she is not eating or drinking much. Will encourage nursing to offer PO fluids more frequently. 3. Afib: Rate controlled. Continue Metoprolol. Would not recommend chronic anticoagulation with history of frequent falls. PCP may reconsider in future. 4. Parkinson's: Continue Carbidopa/Levadopa. VTE prophylaxis: Heparin
[2016-09-27 09:41] LABS: CHLORIDE,CL 102 mmol/L (98-110); SODIUM,NA 137 mmol/L (136-146)
--- NOTE | 2016-09-27 10:05 | PCM.SN ---
- Free Text/Narrative Note: S: no pain, nurse states did well yesterday with no issues. O: afebrile vital signs stable dressing clean/dry/intact right hip. no swelling distally. palpable DP pulse HGB 11.8 A/P: POD # 2 right hip hemiarthroplasty for femoral neck fracture - full weight bearing, posterior hip precautions - PT - hgb is stable - d/c larson per IM when urine output good and able - to SNF beginning of week when able
--- NOTE | 2016-09-27 10:39 | CR ---
EXAMINATION: Portable chest radiograph. HISTORY: Leukocytosis. FINDINGS: The trachea is midline. The cardiomediastinal silhouette is stable. Left basilar atelectasis and/or infiltrate again noted with a small left pleural effusion. Mild hyperinflation and chronic interstit ial prominence bilaterally. Osseous structures appear unremarkable. IMPRESSION: Left basilar atelectasis and/or infiltrate with a small left pleural effusion, grossly unchanged to mildly improved.
[2016-09-27] MEDS: Sodium Chloride 0.9% 1,000 ML IV SCH ×2 (12:18→23:27)
--- NOTE | 2016-09-27 12:57 | CR ---
EXAM DATE: 09/24/16 PATIENT'S AGE: 76 Patient: CODY MICHELLE Facility: [place], [place] Site . Site : [id number] Study: XRay Hip Right [id number]/22/2017 12:03:50 PM Ordering Physician: Kamar Godoy Final Report: Indication: Postop follow up. Impression: Two views right hip. Right hip unipolar prosthesis. No fracture or malalignment. No radiographic evidence for complication. Soft tissue air and skin jamarcus commensurate with immediate postoperative appearance. Dictated by Jimenez Patrick MD @ Sep 25 2016 3:07PM (Electronic Signature) Report Signed by Proxy. GISELLE
[2016-09-27] MEDS: traMADol 50 MG Tab PO PRN (13:26)
[2016-09-27] MEDS: Latanoprost 0.005% Ophth Soln 2.5 ML Bottle EYEBOTH SCH ×2 (21:39→21:40)
[2016-09-28] MEDS: Carbidopa/Levodopa 25-100 MG Tab PO SCH ×2 (05:17→13:20)
[2016-09-28] MEDS: Sodium Chloride 0.9% 1,000 ML IV SCH (07:59)
[2016-09-28] MEDS: cefTRIAXone 1 GM in Premix Bag 1 BAG IV SCH (07:59)
[2016-09-28] MEDS: Heparin Sodium 5,000 Units/ML Vial SUBCUT SCH (07:59)
[2016-09-28] MEDS: Cholecalciferol (Vitamin D3) 1,000 Unit Tab PO SCH (08:00)
[2016-09-28] MEDS: Multivitamins with Iron/Calcium/Folic Acid/Minerals Tab PO SCH (08:00)
[2016-09-28] MEDS: Docusate Sodium 100 MG Cap PO SCH (08:01)
[2016-09-28] MEDS: Aspirin 325 MG Tab.EC PO SCH (08:01)
--- NOTE | 2016-09-28 08:02 | PCM.SN ---
- Free Text/Narrative Note: S: no pain, nurse states did well yesterday with no issues. difficulty getting up with therapy. O: afebrile vital signs stable dressing clean/dry/intact right hip. no swelling distally. palpable DP pulse HGB 11.8 A/P: POD # 3 right hip hemiarthroplasty for femoral neck fracture - full weight bearing, posterior hip precautions - PT - hgb is stable - d/c larson per IM when urine output good and able - to SNF when able
[2016-09-28] MEDS: Metoprolol Tartrate 50 MG Tab PO SCH (08:11)
[2016-09-28] MEDS: traMADol 50 MG Tab PO PRN (08:27)
[2016-09-28] MEDS ORDERED: Bisacodyl 10 MG Supp RECTAL ONE (09:45)
[2016-09-28 13:20] VITALS: BP 119/62
--- NOTE | 2016-09-28 13:42 | PCM.DCSUM1 ---
Discharge Summary - Hospital Course Brief History: This 76 yo female with pmh of Lewy Body dementia, parkinson's, and atrial fibrillation who resides at a memory care facility. She presented to [facility] for evaluation after fall. She has been having frequent falls. She was noted to have a mildly displaced subcapital fracture with in the right hip. CT scan of head showed no acute intracranial abnormality. She was given Rocephin for UTI. Mary has no orthopedic coverage this weekend and family request transfer to [place] as she has more family support here. She denied any pain. - Discharge Data Discharge Date: 09/28/16 Discharge Disposition: DC/Tfer to SNF 03 Condition: Good - Discharge Diagnosis/Problem(s) (1) Urinary tract infection SNOMED Code(s): 60261909 ICD Code: N39.0 - URINARY TRACT INFECTION, SITE NOT SPECIFIED Status: Acute Priority: Medium Qualifiers: Urinary tract infection type: acute cystitis (2) Lewy body dementia without behavioral disturbance SNOMED Code(s): 989826625 ICD Code: G31.83 - DEMENTIA WITH LEWY BODIES; F02.80 - DEMENTIA IN OTH DISEASES CLASSD ELSWHR W/O BEHAVRL DISTURB Status: Chronic Priority: Medium (3) Hip fracture, right SNOMED Code(s): 074386937 ICD Code: S72.001A - FRACTURE OF UNSP PART OF NECK OF RIGHT FEMUR, INIT Status: Acute Qualifiers: Encounter type: initial encounter Fracture type: closed Qualified Code(s) : S72.001A - Fracture of unspecified part of neck of right femur, initial encounter for closed fracture (4) Afib SNOMED Code(s): 81055397 ICD Code: I48.91 - UNSPECIFIED ATRIAL FIBRILLATION Status: Chronic Qualifiers: Atrial fibrillation type: unspecified Qualified Code(s): I48.91 - Unspecified atrial fibrillation - Patient Summary/Data Operative Procedure(s) Performed: open treatment of right hip femoral neck fracture with hemiarthroplasty Consults: Consultations 09/24/16 20:11 Consult to Physician [CONS] Routine 09/25/16 10:48 Consult to Case Management [CONS] Routine PT Evaluation and Treatment [CONS] Routine - Patient Instructions Diet: Heart Healthy Diet, Drink 8-10+ Glasses/Day (push oral fluid intake) Activity: As Tolerated Showering/Bathing: May Shower, No Tub Bathing/Swimming Notify Provider of: Fever, Increased Pain, Swelling and Redness, Drainage, Nausea and/or Vomiting Other/Special Instructions: PT/OT to evaluate and treat. Full weight bearing with posterior hip precautions per Dr. Felix. - Discharge Plan Prescriptions/Med Rec: Aspirin [Ecotrin] 325 mg PO DAILY #60 tab.ec Cephalexin [Keflex] 500 mg PO BID #10 cap Docusate Sodium [Colace] 100 mg PO BID #60 cap traMADol HCl [Tramadol HCl] 1 tab PO QID PRN #30 tablet PRN Reason: Pain Home Medications: Home Meds Captopril 50 mg PO BID 11/06/14 [History] Latanoprost [Xalatan 0.005% Ophth Soln] 1 drop EYEBOTH BEDTIME 11/06/14 [History ] Metoprolol Tartrate [Lopressor] 50 mg PO BID 11/06/14 [History] Simvastatin [Zocor] 40 mg PO BEDTIME 11/06/14 [History] Cholecalciferol (Vitamin D3) [Vitamin D] 2,000 unit PO DAILY 07/20/16 [History] Carbidopa/Levodopa [Sinemet 10-100 mg] 1 tab PO TID 09/24/16 [History] Multivit-Min/FA/Lycopene/Lut [Centrum Silver Tablet] 1 tab PO DAILY 09/24/16 [ History] Aspirin [Ecotrin] 325 mg PO DAILY #60 tab.ec 09/28/16 [Rx] Cephalexin [Keflex] 500 mg PO BID #10 cap 09/28/16 [Rx] Docusate Sodium [Colace] 100 mg PO BID #60 cap 09/28/16 [Rx] traMADol HCl [Tramadol HCl] 1 tab PO QID PRN #30 tablet 09/28/16 [Rx] Referrals: Evans Murguia MD [Physician] - 09/30/16 (On his next [facility] rounds.) Velvet Jaime PA [Physician Reworker] - 10/05/16 9:30 am - Discharge Summary/Plan Comment DC Time >30 min.: No Discharge Summary/Plan Comment: Discharge Diagnoses: S/P R hemiarthsroplasty secondary to displaced R femoral neck fracture Parkinson's Lewy body dementia Jone Greenwood was admitted and Orthopedics was consulted. R hemiarthroplasty to hip was complete per Dr. Felix on September 24, 2016. She tolerated procedure well and post- operative phase. She was treated with Rocephin for UTI, which UC from [facility] revealed Gemelia species. Leukocytosis elevated on day 2 of post operative period, UA negative and CXR negative, she was afebrile. Leukocytosis improved, likely due to reactive phase post-op. I will discharge her to [facility] today for PT/OT to evaluate and treat. Dr. Murguia, her PCP is aware of transfer today and of hip fracture S/p hemiarthorplasty. Staff encouraged to push PO fluids due to poor intake after surgery. Continue all home medications, ASA dialy per Dr. Felix for VTE prophylaxis. She is to return to ED or clinic if concerns should arise. Dr. Murguia to see this week at [facility] and Orthopedics to follow up next week. - General Info Date of Service: 09/28/16 Admission Dx/Problem (Free Text: Admission Diagnosis/Problem Admission Diagnosis/Problem Hip fracture requiring operative repair Subjective Update: Denies pain today, otherwise doesn't answer many questions. - Patient Data Vitals - Most Recent: Last Vital Signs Temp 97.4 F 09/28/16 12:00 Pulse 87 09/28/16 12:00 Resp 18 09/28/16 12:00 BP 119/62 09/28/16 12:00 Pulse Ox 94 L 09/28/16 12:00 Weight - Most Recent: 50.802 kg I&O - Last 24 hours: Intake & Output 09/27/16 09/28/16 09/28/16 22:59 06:59 14:59 Intake Total 751 1010 Output Total 100 100 Balance 651 910 Lab Results - Last 24 hrs: Laboratory Results - last 24 hr 09/28/16 Range/Units 10:52 WBC 11.91 H (4.0-11.0) K/uL RBC 3.65 L (4.30-5.90) M/uL Hgb 10.9 L (12.0-16.0) g/dL Hct 33.9 L (36.0-46.0) % MCV 92.9 (80.0-98.0) fL MCH 29.9 (27.0-32.0) pg MCHC 32.2 (31.0-37.0) g/dL RDW Std Deviation 48.6 (28.0-62.0) fl RDW Coeff of Deneen 14 (11.0-15.0) % Plt Count 338 (150-400) K/uL MPV 11.00 (7.40-12.00) fL Neut % (Auto) 76.7 (48.0-80.0) % Lymph % (Auto) 16.2 (16.0-40.0) % [place] % (Auto) 6.7 (0.0-15.0) % Eos % (Auto) 0.2 (0.0-7.0) % Baso % (Auto) 0.2 (0.0-1.5) % Neut # (Auto) 9.1 H (1.4-5.7) K/uL Lymph # (Auto) 1.9 (0.6-2.4) K/uL [place] # (Auto) 0.8 (0.0-0.8) K/uL Eos # (Auto) 0.0 (0.0-0.7) K/uL Baso # (Auto) 0.0 (0.0-0.1) K/uL Nucleated RBC % 0.0 /100WBC Nucleated RBCs # 0 K/uL Med Orders - Current: Current Medications Aspirin (Ecotrin) 325 mg PO DAILY [facility] Last Admin: 09/28/16 08:01 Dose: 325 mg Captopril (Capoten) 50 mg PO BID [facility] Last Admin: 09/28/16 08:12 Dose: 50 mg Carbidopa/Levodopa (Sinemet 25-100 Mg) 1 tab PO TID [facility] Last Admin: 09/28/16 05:17 Dose: Not Given Cholecalciferol (Vitamin D3) 2,000 units PO DAILY [facility] Last Admin: 09/28/16 08:00 Dose: 2,000 units Docusate Sodium (Colace) 100 mg PO BID [facility] Last Admin: 09/28/16 08:01 Dose: 100 mg Fentanyl (Sublimaze) 50 mcg IVPUSH SEECOMMENT PRN PRN Reason: Pain (moderate 4-6) Last Admin: 09/25/16 11:32 Dose: 50 mcg Heparin Sodium (Porcine) (Heparin Sodium) 5,000 units SUBCUT Q12HR [facility] Last Admin: 09/28/16 07:59 Dose: 5,000 units Ceftriaxone Sodium/Dextrose 1 (gm/ Premix) 50 mls @ 100 mls/hr IV Q24H [facility] Last Admin: 09/28/16 07:59 Dose: 100 mls/hr Latanoprost (Xalatan 0.005% Ophth Soln) 0 ml EYEBOTH BEDTIME [facility] Last Admin: 09/27/16 21:40 Dose: Not Given Metoprolol Tartrate (Lopressor) 50 mg PO BID [facility] Last Admin: 09/28/16 08:11 Dose: 50 mg Morphine Sulfate (Morphine) 1 mg IVPUSH Q3H PRN PRN Reason: Pain Last Admin: 09/25/16 21:17 Dose: 1 mg Multivitamins/Minerals (Thera M Plus) 1 tab PO DAILY [facility] Last Admin: 09/28/16 08:00 Dose: 1 tab Tramadol HCl (Ultram) 50 mg PO QID PRN PRN Reason: Pain Last Admin: 09/28/16 08:27 Dose: 50 mg Discontinued Medications Aspirin (Halfprin) 81 mg PO BEDTIME [facility] Last Admin: 09/25/16 20:48 Dose: 81 mg Bisacodyl (Dulcolax) 10 mg RECTAL ONETIME ONE Stop: 09/28/16 09:46 Last Admin: 09/28/16 10:18 Dose: 10 mg Bupivacaine HCl (Marcaine 0.5%) Confirm Administered Dose 30 ml .ROUTE .STK-MED ONE Stop: 09/25/16 09:16 Etomidate (Amidate) Confirm Administered Dose 40 mg IVPUSH .STK-MED ONE Stop: 09/25/16 08:44 Fentanyl (Sublimaze) Confirm Administered Dose 250 mcg .ROUTE .STK-MED ONE Stop: 09/25/16 08:44 Ceftriaxone Sodium 1,000 mg/ (Sodium Chloride) 50 mls @ 200 mls/hr IV Q24H [facility] Cefazolin Sodium/Dextrose 1 gm (/ Premix) 50 mls @ 100 mls/hr IV ONETIME ONE Stop: 09/25/16 09:29 Cefazolin Sodium/Dextrose (Ancef) Confirm Administered Dose 50 mls @ as directed .ROUTE .STK-MED ONE Stop: 09/25/16 08:51 Ceftriaxone Sodium/Dextrose 1 (gm/ Premix) 50 mls @ 200 mls/hr IV Q24H [facility] Cefazolin Sodium/Dextrose 1 gm (/ Premix) 50 mls @ 100 mls/hr IV Q8H [facility] Stop: 09/26/16 03:29 Last Admin: 09/25/16 13:28 Dose: Not Given Cefazolin Sodium/Dextrose 1 gm (/ Premix) 50 mls @ 100 mls/hr IV Q8H [facility] Stop: 09/26/16 09:29 Last Admin: 09/26/16 08:23 Dose: 100 mls/hr Sodium Chloride (Normal Saline) 1,000 mls @ 100 mls/hr IV ASDIRECTED [facility] Last Admin: 09/28/16 07:59 Dose: 100 mls/hr Latanoprost (Xalatan 0.005% Oph Soln) 2.5 ml .ROUTE .STK-MED ONE Stop: 09/24/16 21:21 Lidocaine (Xylocaine-Mpf 2%) Confirm Administered Dose 5 ml .ROUTE .STK-MED ONE Stop: 09/25/16 08:44 Carbidopa/Levodopa (10-100 Pt Own) 1 tab PO TID [facility] Last Admin: 09/25/16 15:17 Dose: Not Given Ondansetron HCl (Zofran) Confirm Administered Dose 4 mg .ROUTE .STK-MED ONE Stop: 09/25/16 08:44 Phenylephrine HCl (Toro-Synephrine) Confirm Administered Dose 10 mg .ROUTE .STK- MED ONE Stop: 09/25/16 09:31 Propofol (Diprivan 20 Ml) Confirm Administered Dose 200 mg .ROUTE .STK-MED ONE Stop: 09/25/16 08:44 Rocuronium [place] (Zemuron) Confirm Administered Dose 100 mg .ROUTE .STK-MED ONE Stop: 09/25/16 08:44 Simvastatin (Zocor) 40 mg PO BEDTIME [facility] Last Admin: 09/24/16 20:53 Dose: 40 mg Succinylcholine Chloride (Succinylcholine In Ns Pf) Confirm Administered Dose 200 mg .ROUTE .STK-MED ONE Stop: 09/25/16 08:44 Tranexamic Acid (Cyklokapron) Confirm Administered Dose 2,000 mg .ROUTE .STK- MED ONE Stop: 09/25/16 08:50 - Exam General: Reports: Alert, Cooperative, No Acute Distress. Denies: Oriented Neck: Reports: Supple Lungs: Reports: Clear to Auscultation, Normal Respiratory Effort Cardiovascular: Reports: Regular Rate, No Murmurs, Irregular Rhythm GI/Abdominal Exam: Normal Bowel Sounds, Soft, Non-Tender, No Mass Extremities: Normal Inspection, Normal Range of Motion, Non-Tender, No Pedal Edema, Normal Capillary Refill Wound/Incisions: Reports: Dressing Dry and Intact (R hip). Denies: Erythema Neurological: Reports: No New Focal Deficit Psy/Mental Status: Reports: Alert, Normal Affect, Normal Mood *Q Meaningful Use (DIS) - VTE *Q VTE Criteria *Q: - Stroke *Q Stroke Criteria *Q: - AMI *Q AMI Criteria *Q:
== END 2016-09-28 14:00 | DRG 470 ==
LOC: MW.MS 18:56
PROVIDERS: ADMIT Internal Medicine; ATTEND Internal Medicine
PROC: 0SRR0JA Replacement of Right Hip Joint, Femoral Surface with Synthetic Substitute, Uncemented, Open Approach (ICD-10-PCS; principal; 2016-09-24)
DX: S72.011A Unspecified intracapsular fracture of right femur, initial encounter for closed fracture (principal); N30.00 Acute cystitis without hematuria; I42.9 Cardiomyopathy, unspecified; W18.30XA Fall on same level, unspecified, initial encounter; Y92.099 Unspecified place in other non-institutional residence as the place of occurrence of the external cause; G31.83 Neurocognitive disorder with Lewy bodies; F02.80 Dementia in other diseases classified elsewhere, unspecified severity, without behavioral disturbance, psychotic disturbance, mood disturbance, and anxiety; G20 Parkinson's disease; I48.91 Unspecified atrial fibrillation; B96.89 Other specified bacterial agents as the cause of diseases classified elsewhere; E78.00 Pure hypercholesterolemia, unspecified; I10 Essential (primary) hypertension; F32.9 Major depressive disorder, single episode, unspecified; M62.81 Muscle weakness (generalized); T81.89XA Other complications of procedures, not elsewhere classified, initial encounter; D72.828 Other elevated white blood cell count; F80.89 Other developmental disorders of speech and language; Z88.8 Allergy status to other drugs, medicaments and biological substances; Z79.899 Other long term (current) drug therapy
CPT/HCPCS: 01214; 36415; 71010; 71010-26; 73501-26-RT; 73501-RT; 80048; 81001; 85025; 85027; 86850; 86900; 86901; 87086; 88305; 88311; 97163-GP; 97530-GP; A9270-GY; C1776; J0690; J0696; J1644; J2270; J2370; J2405; J2704; J3010; J7040

== ENCOUNTER 2016-10-19 10:35 | Emergency (ER) | payer MEDICARE, BC ==
[2016-10-19 10:58] VITALS: BP 141/91
[2016-10-19] MEDS ORDERED: Morphine 2 MG/ML Syringe IVPUSH ONE (11:06)
[2016-10-19] MEDS ORDERED: Ondansetron 4 MG/2 ML SDV IVPUSH ONE (11:06)
[2016-10-19] MEDS ORDERED: Sodium Chloride 0.9% 2.5 ML Syringe FLUSH PRN (11:08)
[2016-10-19] MEDS ORDERED: Sodium Chloride 0.9% 10 ML Syringe FLUSH PRN (11:08)
--- NOTE | 2016-10-19 11:18 | EDM.PDOC ---
<Augusto King - Last Filed: 10/19/16 11:12> ED HPI GENERAL MEDICAL PROBLEM - General Chief Complaint: Lower Extremity Injury/Pain Stated Complaint: FALL Time Seen by Provider: 10/19/16 10:43 - History of Present Illness INITIAL COMMENTS - FREE TEXT/NARRATIVE: HISTORY AND PHYSICAL: History of present illness: This is a 76-year-old female [facility] resident presenting to the emergency department after having a fall. Patient was found by longterm employees on the ground and conscious. As per the patient's , she has a recent right hip surgery less than 1 month ago. Patient has a history of Lewy body dementia. Currently she complains of hip pain on the right side. She denies any shortness of breath or chest pain. History is limited secondary to dementia. Review of systems: As per history of present illness and below otherwise all systems reviewed and negative. Past medical history: As per history of present illness and as reviewed below otherwise noncontributory. Surgical history: As per history of present illness and as reviewed below otherwise noncontributory. Social history: No reported history of drug or alcohol abuse. Family history: As per history of present illness and as reviewed below otherwise noncontributory. Physical exam: HEENT: Atraumatic, normocephalic, pupils reactive, negative for conjunctival pallor or scleral icterus, mucous membranes moist, throat clear, neck supple, nontender, trachea midline. Lungs: Clear to auscultation, breath sounds equal bilaterally, chest nontender. Heart: S1S2, regular, negative for clicks, rubs, or JVD. Abdomen: Soft, nondistended, nontender. Negative for masses or hepatosplenomegaly. Negative for costovertebral tenderness. Extremities: Right hip internally rotated. Manual internal rotation reproduces pain. Pain upon palpation of the lateral hip. No erythema/ bruising. No skin breakdown. Diagnostics: Hip x-ray right-sided CBC CMP Therapeutics: Zofran 4 mg IV push once Morphine 2 mg IV push once Impression: Dislocated right hip Right Hip Pain Score (Numeric/FACES): 8 - Related Data Allergies Allergy/AdvReac Type Severity Reaction Status Date / Time acetaminophen Allergy Hallucinati Verified 10/19/16 10:59 [From Darvocet-N] ons etodolac [From Lodine] Allergy Other Verified 10/19/16 10:59 promethazine HCl Allergy Hallucinati Verified 10/19/16 10:59 [From Phenergan] ons propoxyphene napsylate Allergy Hallucinati Verified 10/19/16 10:59 [From Darvocet-N] ons sulfamethoxazole Allergy Other Verified 10/19/16 10:59 [From Bactrim] trimethoprim [From Bactrim] Allergy Other Verified 10/19/16 10:59 zolpidem [From Ambien] Allergy Other Verified 10/19/16 10:59 SMZ-TMP DS Tabs Allergy Rash Uncoded 01/13/16 08:20 Home Meds: Home Meds Captopril 50 mg PO BID 11/06/14 [History] Latanoprost [Xalatan 0.005% Ophth Soln] 1 drop EYEBOTH BEDTIME 11/06/14 [History ] Metoprolol Tartrate [Lopressor] 50 mg PO BID 11/06/14 [History] Simvastatin [Zocor] 40 mg PO BEDTIME 11/06/14 [History] Cholecalciferol (Vitamin D3) [Vitamin D] 2,000 unit PO DAILY 07/20/16 [History] Carbidopa/Levodopa [Sinemet 10-100 mg] 1 tab PO TID 09/24/16 [History] Multivit-Min/FA/Lycopene/Lut [Centrum Silver Tablet] 1 tab PO DAILY 09/24/16 [ History] Aspirin [Ecotrin] 325 mg PO DAILY #60 tab.ec 09/28/16 [Rx] Docusate Sodium [Colace] 100 mg PO BID #60 cap 09/28/16 [Rx] Bisacodyl 10 mg RC Q24H PRN 10/19/16 [History] Magnesium Hydroxide [Milk of Magnesia] 30 ml PO DAILY PRN 10/19/16 [History] traMADol HCl [Tramadol HCl] 50 mg PO Q6H PRN 10/19/16 [History] Past Medical History HEENT History: Reports: Cataract, Glaucoma Cardiovascular History: Reports: Afib, Cardiomyopathy, High Cholesterol, Hypertension Other Cardiovascular History: REcent stress test, echocardiogram and good results from [facility]/Dr. Roseline Murguia stated Spouse Respiratory History: Reports: COPD Gastrointestinal History: Reports: Diverticulosis Other Gastrointestinal History: constipation occasionally Genitourinary History: Reports: Urinary Incontinence, UTI, Recurrent [employer] History: Reports: Musculoskeletal History: Reports: Fracture, Osteoarthritis Neurological History: Reports: Alzheimers Disease, Parkinson's, Other (See Below ) Other Neuro History: No migraines for years Psychiatric History: Reports: Dementia, Depression Endocrine/Metabolic History: Reports: Osteopenia Hematologic History: Reports: None Immunologic History: Reports: None Oncologic (Cancer) History: Reports: None Dermatologic History: Reports: None - Infectious Disease History Infectious Disease History: Reports: Chicken Pox - Past Surgical History Head Surgeries/Procedures: Reports: None Cardiovascular Surgical History: Reports: Other (See Below) Musculoskeletal Surgical History: Reports: Other (See Below) Other Musculoskeletal Surgeries/Procedures:: right hip fracture with pin placement Social & Family History - Family History Family Medical History: Noncontributory HEENT: Reports: None Cardiac: Reports: Heart Failure, Hypertension Respiratory: Reports: COPD Musculoskeletal: Reports: Arthritis - Tobacco Use Smoking Status *Q: Never Smoker Used Tobacco, but Quit: Yes Month Tobacco Last Used: Cannot recall Second Hand Smoke Exposure: No - Caffeine Use Caffeine Use: Reports: None - Recreational Drug Use Recreational Drug Use: No Drug Use in Last 12 Months: No Course - Vital Signs Last Recorded V/S: Last Vital Signs Temp 36.9 C 10/19/16 10:50 Pulse 85 10/19/16 10:50 Resp 16 10/19/16 10:50 BP 141/91 H 10/19/16 10:50 Pulse Ox 93 L 10/19/16 10:50 - Orders/Labs/Meds Orders: Active Orders 24 hr Category Date Time Status CMP [COMPREHENSIVE METABOLIC PN,CMP] [CHEM] Stat Lab 10/19/16 11:24 Received Sodium Chloride 0.9% [Saline Flush] Med 10/19/16 11:08 Active 10 ml FLUSH ASDIRECTED PRN Sodium Chloride 0.9% [Saline Flush] Med 10/19/16 11:08 Active 2.5 ml FLUSH ASDIRECTED PRN Saline Lock Insert [OM.PC] Stat Oth 10/19/16 11:09 Ordered Medication Orders Sodium Chloride (Saline Flush) 10 ml FLUSH ASDIRECTED PRN PRN Reason: Keep Vein Open Sodium Chloride (Saline Flush) 2.5 ml FLUSH ASDIRECTED PRN PRN Reason: Keep Vein Open Labs: Laboratory Tests 10/19/16 Range/Units 11:24 WBC 11.00 (4.0-11.0) K/uL RBC 3.82 L (4.30-5.90) M/uL Hgb 11.5 L (12.0-16.0) g/dL Hct 36.5 (36.0-46.0) % MCV 95.5 (80.0-98.0) fL MCH 30.1 (27.0-32.0) pg MCHC 31.5 (31.0-37.0) g/dL RDW Std Deviation 54.9 (28.0-62.0) fl RDW Coeff of Deneen 16 H (11.0-15.0) % Plt Count 287 (150-400) K/uL MPV 9.70 (7.40-12.00) fL Neut % (Auto) 62.8 (48.0-80.0) % Lymph % (Auto) 28.8 (16.0-40.0) % [place]isco[place] % (Auto) 7.9 (0.0-15.0) % Eos % (Auto) 0.2 (0.0-7.0) % Baso % (Auto) 0.3 (0.0-1.5) % Neut # (Auto) 6.9 H (1.4-5.7) K/uL Lymph # (Auto) 3.2 H (0.6-2.4) K/uL [place]iscoe # (Auto) 0.9 H (0.0-0.8) K/uL Eos # (Auto) 0.0 (0.0-0.7) K/uL Baso # (Auto) 0.0 (0.0-0.1) K/uL Nucleated RBC % 0.0 /100WBC Nucleated RBCs # 0 K/uL Meds: Medications Generic Name Dose Route Start Last Admin Trade Name Freq PRN Reason Stop Dose Admin Sodium Chloride 10 ml 10/19/16 11:08 Saline Flush FLUSH ASDIRECTED PRN Keep Vein Open Sodium Chloride 2.5 ml 10/19/16 11:08 Saline Flush FLUSH ASDIRECTED PRN Keep Vein Open Discontinued Medications Generic Name Dose Route Start Last Admin Trade Name Freq PRN Reason Stop Dose Admin Morphine Sulfate 2 mg 10/19/16 11:06 10/19/16 11:32 Morphine IVPUSH 10/19/16 11:07 2 mg ONETIME ONE Administration Ondansetron HCl 4 mg 10/19/16 11:06 10/19/16 11:35 Zofran IVPUSH 10/19/16 11:07 4 mg ONETIME ONE Administration Departure - Departure Disposition: Home, Self-Care 01 Clinical Impression: Right hip pain Fall Qualifiers: Encounter type: initial encounter Qualified Code(s): W19.XXXA - Unspecified fall, initial encounter - Discharge Information Forms: ED Department Discharge Additional Instructions: The following information is given to patients seen in the emergency department who are being discharged to home. This information is to outline your options for follow-up care. We provide all patients seen in our emergency department with a follow-up referral. The need for follow-up, as well as the timing and circumstances, are variable depending upon the specifics of your emergency department visit. If you don't have a primary care physician on staff, we will provide you with a referral. We always advise you to contact your personal physician following an emergency department visit to inform them of the circumstance of the visit and for follow-up with them and/or the need for any referrals to a consulting specialist. The emergency department will also refer you to a specialist when appropriate. This referral assures that you have the opportunity for follow-up care with a specialist. All of these measure are taken in an effort to provide you with optimal care, which includes your follow-up. Under all circumstances we always encourage you to contact your private physician who remains a resource for coordinating your care. When calling for follow-up care, please make the office aware that this follow-up is from your recent emergency room visit. If for any reason you are refused follow-up, please contact the [facility] Emergency Department at and asked to speak to the emergency department charge nurse. [facility] [address] [place] [id number] <Kyung Rivera - Last Filed: 10/19/16 12:21> Review of Systems - Review of Systems Review Of Systems: See Below (See history of present illness) ED EXAM, GENERAL - Physical Exam Exam: See Below (See history of present illness) Departure - Departure Time of Disposition: 12:16 Condition: Good
[2016-10-19 11:54] LABS: CHLORIDE,CL 105 mmol/L (98-110); SODIUM,NA 143 mmol/L (136-146)
--- NOTE | 2016-10-19 12:01 | CR ---
Right hip Comparison is made to examination dated October 05, 2016. Prosthetic hip articulates normally. There i s been interval removal of skin clips. 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
== END 2016-10-19 12:52 | disposition home or self-care (01) ==
LOC: MW.ED 10:35
DX: S73.004A Unspecified dislocation of right hip, initial encounter (principal); E78.00 Pure hypercholesterolemia, unspecified; I11.9 Hypertensive heart disease without heart failure; J44.9 Chronic obstructive pulmonary disease, unspecified; F03.90 Unspecified dementia, unspecified severity, without behavioral disturbance, psychotic disturbance, mood disturbance, and anxiety; F32.9 Major depressive disorder, single episode, unspecified; Z98.890 Other specified postprocedural states; Z87.891 Personal history of nicotine dependence; Z79.82 Long term (current) use of aspirin; Z79.899 Other long term (current) drug therapy; Z88.6 Allergy status to analgesic agent; Z88.2 Allergy status to sulfonamides; Z88.8 Allergy status to other drugs, medicaments and biological substances; W19.XXXA Unspecified fall, initial encounter; Y92.129 Unspecified place in nursing home as the place of occurrence of the external cause
CPT/HCPCS: 36415; 73502; 80053; 85025; 96374; 96375; 99284; J2270; J2405

== ENCOUNTER 2016-10-29 05:42 | Emergency (ER) | payer MEDICARE, BC ==
[2016-10-29] MEDS ORDERED: Sodium Chloride 0.9% 10 ML Syringe FLUSH PRN (06:04)
[2016-10-29] MEDS ORDERED: Sodium Chloride 0.9% 2.5 ML Syringe FLUSH PRN (06:04)
[2016-10-29] MEDS ORDERED: Metoprolol Tartrate 5 MG/5 ML SDV IVPUSH ONE ×2 (06:04→08:37)
[2016-10-29] MEDS ORDERED: Metoprolol Succinate 50 MG Tab.ER PO ONE (06:05)
--- NOTE | 2016-10-29 06:11 | EDM.PDOC ---
ED HPI GENERAL MEDICAL PROBLEM - General Chief Complaint: General Stated Complaint: SICK Time Seen by Provider: 10/29/16 06:00 Source of Information: Reports: Patient, Old Records, RN - History of Present Illness INITIAL COMMENTS - FREE TEXT/NARRATIVE: she was brought by Kedar Lombardo today for a heart rate of 130/minute. She has a known history of atrial fibrillation and Lewy Body dementia. She takes metoprolol 50 mg bid. [facility] staff report that she has been taking her medicines. She states that she feels fine. She does not feel any bothersome symptoms. She did not know that her heart rate was fast. according to detention records she takes daily aspirin but no other anticoagulants. - Related Data Allergies Allergy/AdvReac Type Severity Reaction Status Date / Time acetaminophen Allergy Hallucinati Verified 10/29/16 05:56 [From Darvocet-N] ons etodolac [From Lodine] Allergy Other Verified 10/29/16 05:56 promethazine HCl Allergy Hallucinati Verified 10/29/16 05:56 [From Phenergan] ons propoxyphene napsylate Allergy Hallucinati Verified 10/29/16 05:56 [From Darvocet-N] ons sulfamethoxazole Allergy Other Verified 10/29/16 05:56 [From Bactrim] trimethoprim [From Bactrim] Allergy Other Verified 10/29/16 05:56 zolpidem [From Ambien] Allergy Other Verified 10/29/16 05:56 SMZ-TMP DS Tabs Allergy Rash Uncoded 10/29/16 05:56 Home Meds: Home Meds Captopril 50 mg PO BID 11/06/14 [History] Latanoprost [Xalatan 0.005% Ophth Soln] 1 drop EYEBOTH BEDTIME 11/06/14 [History ] Metoprolol Tartrate [Lopressor] 50 mg PO BID 11/06/14 [History] Simvastatin [Zocor] 40 mg PO BEDTIME 11/06/14 [History] Cholecalciferol (Vitamin D3) [Vitamin D] 2,000 unit PO DAILY 07/20/16 [History] Carbidopa/Levodopa [Sinemet 10-100 mg] 1 tab PO TID 09/24/16 [History] Multivit-Min/FA/Lycopene/Lut [Centrum Silver Tablet] 1 tab PO DAILY 09/24/16 [ History] Aspirin [Ecotrin] 325 mg PO DAILY #60 tab.ec 09/28/16 [Rx] Docusate Sodium [Colace] 100 mg PO BID #60 cap 09/28/16 [Rx] Bisacodyl 10 mg RC Q24H PRN 10/19/16 [History] Magnesium Hydroxide [Milk of Magnesia] 30 ml PO DAILY PRN 10/19/16 [History] traMADol HCl [Tramadol HCl] 50 mg PO Q6H PRN 10/19/16 [History] Polyethylene Glycol 3350 [MiraLAX] 17 gram PO DAILY PRN 10/29/16 [History] Past Medical History HEENT History: Reports: Cataract, Glaucoma Cardiovascular History: Reports: Afib, Cardiomyopathy, High Cholesterol, Hypertension Other Cardiovascular History: REcent stress test, echocardiogram and good results from [facility]/Dr. Roseline Murguia stated Spouse Respiratory History: Reports: COPD Gastrointestinal History: Reports: Diverticulosis Other Gastrointestinal History: constipation occasionally Genitourinary History: Reports: Urinary Incontinence, UTI, Recurrent [employer]OR History: Reports: Musculoskeletal History: Reports: Fracture, Osteoarthritis Neurological History: Reports: Alzheimers Disease, Parkinson's, Other (See Below ) Other Neuro History: No migraines for years Psychiatric History: Reports: Dementia, Depression Endocrine/Metabolic History: Reports: Osteopenia Hematologic History: Reports: None Immunologic History: Reports: None Oncologic (Cancer) History: Reports: None Dermatologic History: Reports: None - Infectious Disease History Infectious Disease History: Reports: Chicken Pox - Past Surgical History Head Surgeries/Procedures: Reports: None Cardiovascular Surgical History: Reports: Other (See Below) Musculoskeletal Surgical History: Reports: Other (See Below) Other Musculoskeletal Surgeries/Procedures:: right hip fracture with pin placement Social & Family History - Family History Family Medical History: Noncontributory HEENT: Reports: None Cardiac: Reports: Heart Failure, Hypertension Respiratory: Reports: COPD Musculoskeletal: Reports: Arthritis - Tobacco Use Smoking Status *Q: Never Smoker Used Tobacco, but Quit: Yes Month Tobacco Last Used: Cannot recall Second Hand Smoke Exposure: No - Caffeine Use Caffeine Use: Reports: None - Recreational Drug Use Recreational Drug Use: No Drug Use in Last 12 Months: No ED ROS GENERAL - Review of Systems Review Of Systems: See Below Constitutional: Denies: Fever Respiratory: Denies: Shortness of Breath, Cough, Sputum Cardiovascular: Denies: Chest Pain GI/Abdominal: Denies: Abdominal Pain, Vomiting ED EXAM, GENERAL - Physical Exam Exam: See Below Free Text/Narrative:: alert bradykinesia able to answer simple questions lungs CTA heart RRR without m abdomen non tender 2 plus ankle edema EKG: atrial fibrillation with intermittent sinus beats Course - Vital Signs Last Recorded V/S: Last Vital Signs Temp 97.2 F 10/29/16 05:47 Pulse 88 10/29/16 06:43 Resp 20 10/29/16 06:43 BP 136/92 H 10/29/16 06:43 Pulse Ox 95 10/29/16 06:43 - Orders/Labs/Meds Orders: Active Orders 24 hr Category Date Time Status Cardiac Monitoring [RC] . DIRECTED Care 10/29/16 06:06 Active EKG 12 Lead [EKG Documentation Completion] [RC] STAT Care 10/29/16 05:56 Active CXR [Chest 1V Frontal] [CR] Stat Exams 10/29/16 06:05 Taken COMPREHENSIVE METABOLIC PN,CMP [CHEM] Stat Lab 10/29/16 06:21 Results MAGNESIUM [CHEM] Stat Lab 10/29/16 06:21 Results TSH [CHEM] Stat Lab 10/29/16 06:21 Results Sodium Chloride 0.9% [Saline Flush] Med 10/29/16 06:04 Active 10 ml FLUSH ASDIRECTED PRN Sodium Chloride 0.9% [Saline Flush] Med 10/29/16 06:04 Active 2.5 ml FLUSH ASDIRECTED PRN Saline Lock Insert [OM.PC] Stat Oth 10/29/16 06:04 Ordered Medication Orders Sodium Chloride (Saline Flush) 10 ml FLUSH ASDIRECTED PRN PRN Reason: Keep Vein Open Last Admin: 10/29/16 06:20 Dose: 10 ml Sodium Chloride (Saline Flush) 2.5 ml FLUSH ASDIRECTED PRN PRN Reason: Keep Vein Open Last Admin: 10/29/16 06:20 Dose: 2.5 ml Labs: Laboratory Tests 10/29/16 10/29/16 Range/Units 06:21 06:21 WBC 8.98 (4.0-11.0) K/uL RBC 3.87 L (4.30-5.90) M/uL Hgb 11.8 L (12.0-16.0) g/dL Hct 36.7 (36.0-46.0) % MCV 94.8 (80.0-98.0) fL MCH 30.5 (27.0-32.0) pg MCHC 32.2 (31.0-37.0) g/dL RDW Std Deviation 53.7 (28.0-62.0) fl RDW Coeff of Deneen 15 (11.0-15.0) % Plt Count 305 (150-400) K/uL MPV 9.70 (7.40-12.00) fL Neut % (Auto) 43.2 L (48.0-80.0) % Lymph % (Auto) 48.0 H (16.0-40.0) % [place]ancey % (Auto) 7.5 (0.0-15.0) % Eos % (Auto) 1.1 (0.0-7.0) % Baso % (Auto) 0.2 (0.0-1.5) % Neut # (Auto) 3.9 (1.4-5.7) K/uL Lymph # (Auto) 4.3 H (0.6-2.4) K/uL [place]y # (Auto) 0.7 (0.0-0.8) K/uL Eos # (Auto) 0.1 (0.0-0.7) K/uL Baso # (Auto) 0.0 (0.0-0.1) K/uL Nucleated RBC % 0.0 /100WBC Nucleated RBCs # 0 K/uL Sodium 144 (136-146) mmol/L Potassium 3.3 L (3.5-5.1) mmol/L Chloride 106 (98-110) mmol/L Carbon Dioxide 29 (21-31) mmol/L BUN 12 (6.0-23.0) mg/dL Creatinine 0.6 (0.6-1.5) mg/dL Est Cr Clr Drug Dosing 61.36 mL/min Estimated GFR (MDRD) > 60.0 ml/min Glucose 99 (60-110) mg/dL Calcium 9.0 (8.8-10.8) mg/dL Magnesium 1.3 L (1.5-2.3) mEq/L Total Bilirubin 0.6 (0.1-1.5) mg/dL AST 19 (5-40) IU/L ALT 16 (8-54) IU/L Alkaline Phosphatase 110 (40-150) Total Protein 6.0 (6.0-8.0) g/dL Albumin 3.1 L (3.4-4.8) g/dL Globulin 2.9 (2.0-3.5) g/dL Albumin/Globulin Ratio 1.1 L (1.3-2.8) Meds: Medications Generic Name Dose Route Start Last Admin Trade Name Freq PRN Reason Stop Dose Admin Sodium Chloride 10 ml 10/29/16 06:04 10/29/16 06:20 Saline Flush FLUSH 10 ml ASDIRECTED PRN Administration Keep Vein Open Sodium Chloride 2.5 ml 10/29/16 06:04 10/29/16 06:20 Saline Flush FLUSH 2.5 ml ASDIRECTED PRN Administration Keep Vein Open Discontinued Medications Generic Name Dose Route Start Last Admin Trade Name Freq PRN Reason Stop Dose Admin Metoprolol Succinate 50 mg 10/29/16 06:05 10/29/16 06:19 Toprol Xl PO 10/29/16 06:06 50 mg ONETIME ONE Administration Metoprolol Tartrate 5 mg 10/29/16 06:04 10/29/16 06:16 Lopressor IVPUSH 10/29/16 06:05 5 mg ONETIME ONE Administration - Re-Assessments/Exams Free Text/Narrative Re-Assessment/Exam: 10/29/16 07:02 heart rate decreased to: 94/minute; still with atrial fibrillation intermittently Departure - Departure Time of Disposition: 07:03 Disposition: DC/Tfer to [facility] Clinical Impression: Atrial fibrillation with rapid ventricular response - Discharge Information Referrals: Evans Murguia MD [Primary Care Provider] - Forms: ED Department Discharge Additional Instructions: increase metoprolol XL to 100 mg bid a recheck of her potassium level and Mg level is recommended. decision regarding further anticoagulation deferred to her primary attending physician, Dr Evans Murguia - My Orders Last 24 Hours: My Active Orders 10/29/16 05:56 EKG 12 Lead [EKG Documentation Completion] [RC] STAT 10/29/16 06:04 Sodium Chloride 0.9% [Saline Flush] 10 ml FLUSH ASDIRECTED PRN Sodium Chloride 0.9% [Saline Flush] 2.5 ml FLUSH ASDIRECTED PRN Saline Lock Insert [OM.PC] Stat 10/29/16 06:05 CXR [Chest 1V Frontal] [CR] Stat 10/29/16 06:06 Cardiac Monitoring [RC] . DIRECTED 10/29/16 06:21 COMPREHENSIVE METABOLIC PN,CMP [CHEM] Stat MAGNESIUM [CHEM] Stat TSH [CHEM] Stat - Assessment/Plan Last 24 Hours: My Active Orders 10/29/16 05:56 EKG 12 Lead [EKG Documentation Completion] [RC] STAT 10/29/16 06:04 Sodium Chloride 0.9% [Saline Flush] 10 ml FLUSH ASDIRECTED PRN Sodium Chloride 0.9% [Saline Flush] 2.5 ml FLUSH ASDIRECTED PRN Saline Lock Insert [OM.PC] Stat 10/29/16 06:05 CXR [Chest 1V Frontal] [CR] Stat 10/29/16 06:06 Cardiac Monitoring [RC] . DIRECTED 10/29/16 06:21 COMPREHENSIVE METABOLIC PN,CMP [CHEM] Stat MAGNESIUM [CHEM] Stat TSH [CHEM] Stat
[2016-10-29 06:55] LABS: CHLORIDE,CL 106 mmol/L (98-110); SODIUM,NA 144 mmol/L (136-146)
[2016-10-29] MEDS ORDERED: Magnesium Sulfate/Water 2 GM in Premix Bag 1 BAG IV ONE (07:00)
[2016-10-29] MEDS ORDERED: Potassium Chloride 20 MEQ Tab.ER PO ONE (07:00)
[2016-10-29] MEDS ORDERED: Sodium Chloride 0.9% 1,000 ML IV STA (07:47)
[2016-10-29] MEDS ORDERED: Potassium Chloride 10% 20 MEQ/15 ML Soln 30 ML UD Cup PO SCH (08:30)
--- NOTE | 2016-10-29 09:47 | CR ---
EXAM DATE: 10/29/16 PATIENT'S AGE: 76 Patient: CODY MICHELLE Facility: [place], [place] Site . Site : [id number] Study: XRay Chest [id number] 6:27:29 AM Ordering Physician: Doctor Coates Final Report: HISTORY: Tachycardia. Atrial fibrillation with RVR. Technique : Frontal view of the chest. Comparison: Chest x-ray 09/27/2016. Findings: Patient`s chin obscures portions the lung apices. Small pleural effusion bilaterally, left greater than right, with bibasilar atelectasis. No focal consolidation. No pneumothorax. No focal consolidation. Cardiac silhouette is mildly enlarged. Impression: Small pleural effusion bilaterally, left greater than right, with bibasilar atelectasis. Dictated by Ortega Ball MD @ Oct 29 2016 6:45AM (Electronic Signature) Report Signed by Proxy. GISELLE
[2016-10-29 11:34] VITALS: BP 119/75
== END 2016-10-29 10:27 ==
LOC: MW.ED 05:42
DX: I48.91 Unspecified atrial fibrillation (principal); E78.00 Pure hypercholesterolemia, unspecified; I11.9 Hypertensive heart disease without heart failure; J44.9 Chronic obstructive pulmonary disease, unspecified; G30.9 Alzheimer's disease, unspecified; F02.80 Dementia in other diseases classified elsewhere, unspecified severity, without behavioral disturbance, psychotic disturbance, mood disturbance, and anxiety; M19.90 Unspecified osteoarthritis, unspecified site; Z79.82 Long term (current) use of aspirin; Z88.6 Allergy status to analgesic agent; Z88.2 Allergy status to sulfonamides; Z88.1 Allergy status to other antibiotic agents; Z79.899 Other long term (current) drug therapy; Z87.440 Personal history of urinary (tract) infections
CPT/HCPCS: 36415; 71010; 80053; 83735; 84443; 85025; 93005; 96365; 96366; 96375; 99285; A9270; J3475; J7040; 99283